=== PATIENT | female | born 1955 | race Caucasian/White ===

== ENCOUNTER 2024-02-21 09:59 | Observation (INO) ==
--- NOTE | 2024-02-21 10:10 | Emergency Department Note ---
Impression & Plan Abdominal pain, Leukocytosis, Elevated troponin, UTI (urinary tract infection) ED Provider Note NAME: DEANGELO STRANGE AGE: 68 SEX: F : 1955 ARRIVES VIA: Ambulance INFORMANT: Patient ED PROVIDER(S): Terry Marquez DO CHIEF COMPLAINT: abdominal pain HPI: Patient is a 68-year-old female who presents to the ER for abdominal pain which started around 7 AM this morning. Got significant worse after drinking water. Is in the left lower quadrant. Associate with nausea and vomiting. She was having diarrhea yesterday which continued into today. Denies any headache or change in vision. No chest pain or shortness of breath. She notes that she almost passed out yesterday and believes it was from being dehydrated. No chest pain or shortness of breath. No dysuria, urgency, or frequency. No other exacerbating or remitting factors. ADDITIONAL HISTORY OBTAINED: Per HPI Chronic Medical/Social Conditions Affecting Care: Per HPI PAST MEDICAL HISTORY:See Below PAST SURGICAL HISTORY:See Below FAMILY HISTORY:See Below SOCIAL HISTORY:See Below HOME MEDICATIONS:See Below ALLERGIES:See Below VITALS:See Below PHYSICAL EXAMINATION: GENERAL: Sitting up in bed, alert, cachectic, disheveled, holding her left lower, moderate distress EYE EXAM: normal conjunctiva. OROPHARYNX: no exudate, no erythema, lips, buccal mucosa, and tongue normal and mucous membranes are moist LUNGS: Clear to auscultation. Normal chest wall mechanics HEART: no murmurs, S1 normal and S2 normal ABDOMEN: abdomen soft, tender palpation left lower quadrant, normo-active bowel sounds, no masses, no rebound or guarding. BACK: Back is symmetrical on inspection and there is no deformity, no midline tenderness, no CVA tenderness. SKIN: no rashes and no bruising UPPER EXTREMITIES: upper extremities are grossly normal. LOWER EXTREMITIES: No pitting edema. NEURO EXAM: Normal sensorium, cranial nerves II-XII grossly intact, normal speech, no gross weakness of arms, no gross weakness of legs. MEDICAL DECISION MAKING: Patient is a 68-year-old female who presents ER for above-stated complaint. IV was established blood work was obtained. Labs show leukocytosis of 20,000. No significant anemia. BMP was fairly unremarkable. LFTs bilirubin was unremarkable. Troponin was elevated at 700. Lipase was normal. UA is consistent with UTI. She has reproducible pain and left lower quad. She was given multiple doses of morphine. CT abdomen pelvis showed multiple chronic findings in combination with Mildly distended common bile duct and main pancreatic duct with mild intrahepatic bile duct dilatation. No obstructing lesions or stones identified. Recommend correlation with LFTs to exclude an occult obstructing process near the ampulla. Discussed this with gastroenterology and they agreed with admission as opposed to transfer at this time as there is no transaminitis and bilirubin was unremarkable. Patient was given IV fluids. Patient was updated bedside. She was having improvement in her pain which also led to improvement of blood pressures. Blood pressures initially were 230s and trended down to low 180s with IV pain medications. I did favor that this was driven secondary to pain in the left lower abdomen. Discussed the case with the hospitalist for further evaluation management treatment. Again patient adamantly denies any chest pain or shortness of breath Consults/Care Managements Discussions: Per [facility] Triage Nursing notes reviewed. Limited review of prior medical records performed Vital Signs: reviewed and remarkable for no significant abnormalities Differential diagnosis: Differential diagnoses includes but is not limited to gastritis, peptic ulcer disease, GERD, gallbladder disease, pancreatitis, small bowel obstruction, appendicitis, diverticulitis, hernia, urinary tract infection, torsion, perforation, trauma, infectious. ER treatment provided: See below Diagnostics interpreted by me include EKG and cardiac monitoring as listed below: -Cardiac Monitoring: An order was placed for continuous cardiac monitoring. The monitor shows a rate of 80 with sinus rhythm. -ECG: Sinus rhythm rate 77 Normal axis No PVCs T wave inversions in the septal and anterior leads QTc 547 -Laboratory studies:Interpreted by me as stated above in MDM and shown below. Imaging studies: Xrays: As interpreted by me:none CTs show: CT abdomen pelvis per my preliminary interpretation showed inflammation of the stomach CT abdomen pelvis per radiology as described above Procedures:none Critical Care: None Past Med/Surg History Problem List (Updated 02/21/24 @ 15:51 by Terry Marquez DO) UTI (urinary tract infection) (Acute) Elevated troponin (Acute) Leukocytosis (Acute) Abdominal pain (Acute) Social History Smoking Status: Current every day smoker Tobacco Type: Cigarettes Feels Safe at Home: Yes Allergies Allergies Allergy/AdvReac Type Severity Reaction Status Date / Time No Known Allergies Allergy Unverified 03/15/22 13:30 Home Meds Previous Rx's Medication Instructions Recorded lisinopril 5 mg tablet 5 mg PO DAILY #30 tabs 03/15/22 Results & Data (ED) Vital Signs Vital Signs - 24 hr 02/21/24 10:00 02/21/24 10:09 02/21/24 10:09 Temperature 36.7 C Temperature Source Oral Pulse Rate 79 71 Pulse Rate [Finger] Pulse Rate from SpO2 Sensor Respiratory Rate 21 17 Respiratory Effort / Characteristics Spontaneous Short of Breath Respiratory Depth Normal Respiratory Pattern Tachypnea Blood Pressure 230/89 H Blood Pressure [Right Arm] Blood Pressure Mean 136 Blood Pressure Mean [Right Arm] Blood Pressure Position Semi-fowlers Blood Pressure Position [Right Arm] Pulse Oximetry 96 98 97 Oxygen Delivery Method Room Air Room Air Room Air Sepsis Recent Fever Within 48 Hours No Sepsis New/Unexplained Change in Mental Status No Sepsis Action Taken by Nursing No Action Required 02/21/24 10:17 02/21/24 11:26 02/21/24 12:00 Temperature Temperature Source Pulse Rate 71 89 Pulse Rate [Finger] Pulse Rate from SpO2 Sensor 85 Respiratory Rate 21 31 H Respiratory Effort / Characteristics Non-Labored Spontaneous Respiratory Depth Normal Respiratory Pattern Regular Blood Pressure 187/115 H Blood Pressure [Right Arm] 221/95 H Blood Pressure Mean 139 Blood Pressure Mean [Right Arm] 137 Blood Pressure Position Blood Pressure Position [Right Arm] Semi-fowlers Pulse Oximetry 96 Oxygen Delivery Method Sepsis Recent Fever Within 48 Hours Sepsis New/Unexplained Change in Mental Status Sepsis Action Taken by Nursing 02/21/24 12:15 Temperature Temperature Source Pulse Rate Pulse Rate [Finger] 75 Pulse Rate from SpO2 Sensor Respiratory Rate 15 Respiratory Effort / Characteristics Non-Labored Spontaneous Respiratory Depth Normal Respiratory Pattern Regular Blood Pressure Blood Pressure [Right Arm] 187/115 H Blood Pressure Mean Blood Pressure Mean [Right Arm] 139 Blood Pressure Position Blood Pressure Position [Right Arm] Semi-fowlers Pulse Oximetry 91 Oxygen Delivery Method Room Air Sepsis Recent Fever Within 48 Hours Sepsis New/Unexplained Change in Mental Status Sepsis Action Taken by Nursing Laboratory Data 02/21/24 10:39 02/21/24 10:39 Lab Results 02/21/24 02/21/24 02/21/24 Range/Units 10:39 10:57 11:20 WBC 20.96 H (4.8-10.8) K/ul RBC 4.76 (4.20-5.40) M/uL Hgb 14.0 (12.0-16.0) g/dl POC Hgb 13.6 (12.0-16.0) g/dl Hct 41.5 (37.0-47.0) % POC Hct 40 (37-47) % MCV 87.2 (80.0-100.0) fL MCH 29.4 (25.0-34.0) pg MCHC 33.7 (32.0-36.0) g/dL RDW Std Deviation 39.7 (36.4-46.3) fL RDW Coeff of Tracey 12.4 (11.5-14.5) % Plt Count 572 H (130-400) K/uL MPV 9.0 L (9.4-12.4) fL Immature Gran % (Auto) 0.5 % Neut % (Auto) 90.7 % Lymph % (Auto) 4.2 % [place] % (Auto) 4.3 % Eos % (Auto) 0.0 % Baso % (Auto) 0.3 % Neut # (Auto) 19.01 H (1.40-6.50) K/uL Lymph # (Auto) 0.87 L (1.20-3.40) K/uL [place] # (Auto) 0.91 H (0.11-0.59) K/uL Eos # (Auto) 0.00 (0.00-0.50) K/uL Baso # (Auto) 0.06 (0.00-0.20) K/uL Immature Gran # (Auto) 0.11 (0.01-0.20) K/uL RBC Morphology Unremarkable POC Sodium 138 (135-144) mmol/L Sodium 137 (136-145) mmol/L POC Potassium 3.5 (3.3-5.0) mmol/L Potassium 3.7 (3.5-5.1) mmol/L POC Chloride 100 L (101-112) mmol/L Chloride 98 (98-107) mmol/L Carbon Dioxide 27 (21-32) mmol/L POC Total CO2 28 (24-31) mmol/L Anion Gap 12 H (3-11) POC Anion Gap 15.0 L (16-25) mmol/L POC BUN 16 (7-18) mg/dl BUN 16 (6-23) mg/dl Creatinine 0.82 (0.6-1.2) mg/dl POC Creatinine 0.8 (0.6-1.3) mg/dl Est Cr Clr Drug Dosing 43.6 ml/min Est GFR ( Amer) 86.4 ml/min Est GFR (Non-Af Amer) 74.6 ml/min BUN/Creatinine Ratio 19.5 (10-20) Glucose 131 H (70-99(Fasting)) mg/dl POC Glucose (other) 131 H (70-99) mg/dl Lactate (0.4-2.0) mmol/L Calcium 9.5 (8.6-10.3) mg/dl POC Ioniz Calcium Nestor 1.08 L (1.12-1.32) mmol/l Total Bilirubin 0.5 (0.2-1.0) mg/dl AST 19 (13-39) U/L ALT 11 (7-52) U/L Alkaline Phosphatase 94 (34-104) U/L Troponin I High Sens 781.7 H* (0-14) pg/ml Total Protein 8.8 H (6.0-8.3) gm/dl Albumin 4.3 (3.4-5.0) gm/dl Globulin 4.5 H (2.5-4.0) gm/dl Albumin/Globulin Ratio 1.0 (0.9-2) Lipase 15 (11-82) U/L Urine Color Yellow Urine Appearance Cloudy A (Clear) Urine pH 6.5 (4.5-7.5) Ur Specific Castella 1.018 (1.000-1.030) Urine Protein 2+ H (Negative) Urine Glucose (UA) Negative (Negative) Urine Ketones 2+ H (Negative) Urine Blood Trace H (Negative) Urine Nitrite Negative (Negative) Urine Bilirubin Negative (Negative) Urine Urobilinogen Negative (Negative) Ur Leukocyte Esterase 3+ H (Negative) Urine WBC (Auto) 21-50 H (0-5) /hpf Urine RBC (Auto) 0-2 (0-2) /hpf U Hyaline Cast (Auto) 3-5 H (0-2) /lpf U Epithel Cells (Auto) 3-5 H (0-2) /hpf Urine Bacteria (Auto) 2+ H (None Seen) 02/21/24 Range/Units 12:20 WBC (4.8-10.8) K/ul RBC (4.20-5.40) M/uL Hgb (12.0-16.0) g/dl POC Hgb (12.0-16.0) g/dl Hct (37.0-47.0) % POC Hct (37-47) % MCV (80.0-100.0) fL MCH (25.0-34.0) pg MCHC (32.0-36.0) g/dL RDW Std Deviation (36.4-46.3) fL RDW Coeff of Tracey (11.5-14.5) % Plt Count (130-400) K/uL MPV (9.4-12.4) fL Immature Gran % (Auto) % Neut % (Auto) % Lymph % (Auto) % [place] % (Auto) % Eos % (Auto) % Baso % (Auto) % Neut # (Auto) (1.40-6.50) K/uL Lymph # (Auto) (1.20-3.40) K/uL [place] # (Auto) (0.11-0.59) K/uL Eos # (Auto) (0.00-0.50) K/uL Baso # (Auto) (0.00-0.20) K/uL Immature Gran # (Auto) (0.01-0.20) K/uL RBC Morphology POC Sodium (135-144) mmol/L Sodium (136-145) mmol/L POC Potassium (3.3-5.0) mmol/L Potassium (3.5-5.1) mmol/L POC Chloride (101-112) mmol/L Chloride (98-107) mmol/L Carbon Dioxide (21-32) mmol/L POC Total CO2 (24-31) mmol/L Anion Gap (3-11) POC Anion Gap (16-25) mmol/L POC BUN (7-18) mg/dl BUN (6-23) mg/dl Creatinine (0.6-1.2) mg/dl POC Creatinine (0.6-1.3) mg/dl Est Cr Clr Drug Dosing ml/min Est GFR ( Amer) ml/min Est GFR (Non-Af Amer) ml/min BUN/Creatinine Ratio (10-20) Glucose (70-99(Fasting)) mg/dl POC Glucose (other) (70-99) mg/dl Lactate 1.9 (0.4-2.0) mmol/L Calcium (8.6-10.3) mg/dl POC Ioniz Calcium Nestor (1.12-1.32) mmol/l Total Bilirubin (0.2-1.0) mg/dl AST (13-39) U/L ALT (7-52) U/L Alkaline Phosphatase (34-104) U/L Troponin I High Sens (0-14) pg/ml Total Protein (6.0-8.3) gm/dl Albumin (3.4-5.0) gm/dl Globulin (2.5-4.0) gm/dl Albumin/Globulin Ratio (0.9-2) Lipase (11-82) U/L Urine Color Urine Appearance (Clear) Urine pH (4.5-7.5) Ur Specific [place]ella (1.000-1.030) Urine Protein (Negative) Urine Glucose (UA) (Negative) Urine Ketones (Negative) Urine Blood (Negative) Urine Nitrite (Negative) Urine Bilirubin (Negative) Urine Urobilinogen (Negative) Ur Leukocyte Esterase (Negative) Urine WBC (Auto) (0-5) /hpf Urine RBC (Auto) (0-2) /hpf U Hyaline Cast (Auto) (0-2) /lpf U Epithel Cells (Auto) (0-2) /hpf Urine Bacteria (Auto) (None Seen) Administered Medications Discontinued Medications Sodium Chloride (Nss) 1,000 mls @ 999 mls/hr IV .Q1H1M ONE Stop: 02/21/24 11:08 Last Infusion: 02/21/24 11:25 Dose: Infused Documented By: Admin: 02/21/24 10:43 Dose: 999 mls/hr Documented By: MARI Piperacillin Sod/Tazobactam Sod (Zosyn) 4.5 gm in 100 mls @ 200 mls/hr IV NOW ONE Stop: 02/21/24 12:23 Last Infusion: 02/21/24 12:40 Dose: Infused Documented By: Admin: 02/21/24 12:10 Dose: 200 mls/hr Documented By: MARI Sodium Chloride (Nss) 1,000 mls @ 999 mls/hr IV .Q1H1M ONE Stop: 02/21/24 13:01 Last Infusion: 02/21/24 14:04 Dose: Infused Documented By: Admin: 02/21/24 12:14 Dose: 999 mls/hr Documented By: MARI Ioversol (Optiray 320 100ml) 94 ml IV ONCE ONE Stop: 02/21/24 11:13 Last Admin: 02/21/24 11:12 Dose: 94 ml Documented By: TERESA Morphine Sulfate (Morphine Sulfate 2 Mg/Ml Carp) 2 mg IV NOW STA Stop: 02/21/24 10:14 Last Admin: 02/21/24 10:30 Dose: 2 mg Documented By: MARI Morphine Sulfate (Morphine Sulfate 4 Mg/Ml 1 Ml Carp\Vial) 4 mg IV NOW STA Stop: 02/21/24 11:25 Last Admin: 02/21/24 11:29 Dose: 4 mg Documented By: MARI Morphine Sulfate (Morphine Sulfate 10 Mg/Ml Carp/Vial) 6 mg IV NOW STA Stop: 02/21/24 11:54 Last Admin: 02/21/24 12:06 Dose: 6 mg Documented By: MARI Morphine Sulfate (Morphine Sulfate 4 Mg/Ml 1 Ml Carp\Vial) 4 mg IV NOW STA Stop: 02/21/24 14:07 Last Admin: 02/21/24 14:12 Dose: 4 mg Documented By: MARI Ondansetron HCl (Ondansetron Inj 2 Mg/Ml 2 Ml Vial) 4 mg IV NOW STA Stop: 02/21/24 10:14 Last Admin: 02/21/24 10:30 Dose: 4 mg Documented By: MARI Imaging Data Radiologist's Impression: Abdomen/Pelvis CT 02/21/24 10:[address] WITH IV CONTRAST CT DOSE: 261.89 mGy.cm HISTORY: Generalized abdominal pain. TECHNIQUE: Multiaxial CT images of the abdomen and pelvis were performed following the use of intravenous contrast. A dose lowering technique was utilized adhering to the principles of ALARA. COMPARISON STUDY: None. FINDINGS: Emphysema is noted at the lung bases. No pneumoperitoneum. No pneumatosis. No acute fractures identified. Moderate levoscoliosis of the lumbar spine. Mild superior endplate compression deformities at L1 and L2. These are technically age indeterminate but likely chronic. No associated retropulsion. There are are a few subcentimeter hypodense lesions within the liver. These are technically too small to characterize but statistically represent cysts. These measure up to 5 mm. The common bile duct is distended up to 9 mm. The main pancreatic duct is also mildly distended measuring up to 4 mm. No obstructing stones or lesions identified. There is mild intrahepatic bile duct dilatation. The gallbladder is contracted but appears unremarkable. The pancreas enhances normally. The spleen and adrenal glands are unremarkable. There is a 12 mm cyst within the mid right kidney. Mild multifocal scarring within the right kidney. No hydronephrosis. The main portal vein is patent. Heavily calcified plaque within the normal caliber abdominal aorta. There is occlusion of the right iliac arteries which are small in caliber suggestive chronic occlusion. There is reconstitution of flow at the right common femoral artery due to a collateral from the inferior epigastric. There is also occlusion of the bilateral superficial femoral arteries which are also small caliber and therefore likely chronic. 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 No retroperitoneal or pelvic lymphadenopathy. The bladder is distended. The uterus and bilateral adnexa are unremarkable. There is an 11 mm right ovarian cyst. A few colonic diverticula. No evidence for acute diverticulitis. No bowel wall thickening or obstruction. Normal appendix. Fluid- filled loop of small bowel within the left lower quadrant is not dilated by CT criteria. Therefore, this is unlikely to represent an obstruction. Mildly distended and fluid-filled stomach. No definite transition point.. IMPRESSION: 1. No bowel wall thickening or obstruction. 2. Mildly distended and fluid-filled stomach. 3. No hydronephrosis. 4. Normal appendix. 5. Mildly distended common bile duct and main pancreatic duct with mild intrahepatic bile duct dilatation. No obstructing lesions or stones identified. Recommend correlation with LFTs to exclude an occult obstructing process near the ampulla. Follow-up nonemergent ERCP should also be considered for further evaluation. 6. Distended bladder. 7. 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 8. Mild superior endplate compression deformities at L1 and L2. This is likely chronic. 9. Additional findings as described above. ACT 112: Negative or not required by law. Electronically signed by: Kingsley Bruner M.D. 02/21/2024 11:46 AM Discharge Plan Visit Data Chief Complaint: Abdominal Pain ED Provider: Terry Marquez Discharge Problem: Abdominal pain, Leukocytosis, Elevated troponin, UTI (urinary tract infection) Patient Disposition: Admitted As Inpatient Discharge Instructions Interventions: ED Discharge Assessment Last Done: 02/21/24 14:46 Discharge Problem: Abdominal pain Qualifiers: Abdominal location: unspecified location Qualified Code(s): R10.9 - Unspecified abdominal pain Leukocytosis Qualifiers: Leukocytosis type: unspecified Qualified Code(s): D72.829 - Elevated white blood cell count, unspecified UTI (urinary tract infection) Qualifiers: Urinary tract infection type: site unspecified Hematuria presence: without hematuria Qualified Code(s): N39.0 - Urinary tract infection, site not specified
[2024-02-21] MEDS: MoRPHine SULFATE 2 MG/ML CARP IV STA (10:30)
[2024-02-21] MEDS: ONDANSETRON INJ 2 MG/ML 2 ML VIAL IV STA (10:30)
[2024-02-21] MEDS: SODIUM CHLORIDE 0.9% 1,000 ML IV ONE ×2 (10:43→12:14)
[2024-02-21 11:06] LABS: Hematocrit (blood only) 41.5 % (37.0-47.0); Mean Corpuscular Hemoglobin 29.4 pg (25.0-34.0); Mean Corpuscular Hgb Conc 33.7 g/dL (32.0-36.0); Mean Corpuscular Volume 87.2 fL (80.0-100.0); Platelet Count 572 K/uL (130-400); RDW Coefficient of Variation 12.4 % (11.5-14.5); RDW Standard Deviation 39.7 fL (36.4-46.3); Red Blood Count 4.76 M/uL (4.20-5.40); White Blood Count 20.96 K/ul (4.8-10.8)
[2024-02-21 11:11] LABS: iSTAT Creatinine 0.8 mg/dl (0.6-1.3); iSTAT Hemoglobin 13.6 g/dl (12.0-16.0); iSTAT Ionized Calcium 1.08 mmol/l (1.12-1.32); iSTAT Potassium 3.5 mmol/L (3.3-5.0)
[2024-02-21] MEDS: OPTIRAY 320 100ml IV ONE (11:12)
[2024-02-21 11:23] LABS: Albumin Level 4.3 gm/dl (3.4-5.0); BUN Creatinine Ratio 19.5 (10-20); Bilirubin,Total 0.5 mg/dl (0.2-1.0); Calcium 9.5 mg/dl (8.6-10.3); Creatinine Clr Calc Pharmacy 43.6 ml/min; Est GFR (African American) 86.4 ml/min; Est GFR (Non-African American) 74.6 ml/min; Globulin 4.5 gm/dl (2.5-4.0); Potassium 3.7 mmol/L (3.5-5.1); Total Protein 8.8 gm/dl (6.0-8.3)
[2024-02-21] MEDS: MoRPHine SULFATE 4 MG/ML 1 ML CARP\\VIAL IV STA ×2 (11:29→14:12)
[2024-02-21 11:31] LABS: Basophils # (auto) 0.06 K/uL (0.00-0.20); Basophils % (auto) 0.3 %; Immature Granulocytes # (auto) 0.11 K/uL (0.01-0.20); Immature Granulocytes % (auto) 0.5 %; Lymphocytes # (auto) 0.87 K/uL (1.20-3.40); Lymphocytes % (auto) 4.2 %; Monocytes # (auto) 0.91 K/uL (0.11-0.59); Monocytes % (auto) 4.3 %; Neutrophils # (auto) 19.01 K/uL (1.40-6.50); Neutrophils % (auto) 90.7 %; RBC Morphology Unremarkable
[2024-02-21 11:34] LABS: Appearance Urine Cloudy (Clear); Bacteria Urine Automated 2+ (None Seen); Bilirubin Urine Negative (Negative); Blood Urine Trace (Negative); Color Urine Yellow; Glucose Urine UA Negative (Negative); Ketones Urine 2+ (Negative); Leukocyte Esterase Urine 3+ (Negative); Nitrite Urine Negative (Negative); Protein Urine 2+ (Negative); RBC Urine Automated 0-2 /hpf (0-2); Specific Gravity Urine 1.018 (1.000-1.030); Urobilinogen Urine Negative (Negative); WBC Urine Automated 21-50 /hpf (0-5); pH Urine 6.5 (4.5-7.5)
[2024-02-21 11:36] LABS: Troponin I High Sensitivity 781.7 pg/ml (0-14)
--- NOTE | 2024-02-21 11:48 | CT Scan Report ---
ABDOMEN AND PELVIS CT WITH IV CONTRAST CT DOSE: 261.89 mGy.cm HISTORY: Generalized abdominal pain. TECHNIQUE: Multiaxial CT images of the abdomen and pelvis were performed following the use of intrave nous contrast. A dose lowering technique was utilized adhering to the principles of ALARA. COMPARISON STUDY: None. FINDINGS: Emphysema is noted at the lung bases. No pneumoperitoneum. No pneumatosis. No acute fractur es identified. Moderate levoscoliosis of the lumbar spine. Mild superior endplate compression deformi ties at L1 and L2. These are technically age indeterminate but likely chronic. No associated retropul nataliya. There are are a few subcentimeter hypodense lesions within the liver. These are technically too small to characterize but statistically represent cysts. These measure up to 5 mm. The common bile d uct is distended up to 9 mm. The main pancreatic duct is also mildly distended measuring up to 4 mm. No obstructing stones or lesions identified. There is mild intrahepatic bile duct dilatation. The gal lbladder is contracted but appears unremarkable. The pancreas enhances normally. The spleen and adren al glands are unremarkable. There is a 12 mm cyst within the mid right kidney. Mild multifocal scarri ng within the right kidney. No hydronephrosis. The main portal vein is patent. Heavily calcified plaq ue within the normal caliber abdominal aorta. There is occlusion of the right iliac arteries which ar e small in caliber suggestive chronic occlusion. There is reconstitution of flow at the right common femoral artery due to a collateral from the inferior epigastric. There is also occlusion of the bilat eral superficial femoral arteries which are also small caliber and therefore likely chronic. High-gra de stenosis noted at the proximal superior mesenteric artery which is likely chronic. No retroperiton eal or pelvic lymphadenopathy. The bladder is distended. The uterus and bilateral adnexa are unremark able. There is an 11 mm right ovarian cyst. A few colonic diverticula. No evidence for acute divertic ulitis. No bowel wall thickening or obstruction. Normal appendix. Fluid-filled loop of small bowel wi thin the left lower quadrant is not dilated by CT criteria. Therefore, this is unlikely to represent an obstruction. Mildly distended and fluid-filled stomach. No definite transition point.. IMPRESSION: 1. No bowel wall thickening or obstruction. 2. Mildly distended and fluid-filled stomach. 3. No hydronephrosis. 4. Normal appendix. 5. Mildly distended common bile duct and main pancreatic duct with mild intrahepatic bile duct dilata tion. No obstructing lesions or stones identified. Recommend correlation with LFTs to exclude an occu lt obstructing process near the ampulla. Follow-up nonemergent ERCP should also be considered for fur ther evaluation. 6. Distended bladder. 7. 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 8. Mild superior endplate compression deformities at L1 and L2. This is likely chronic. 9. Additional findings as described above. ACT 112: Negative or not required by law. Electronically signed by: Kingsley Bruner M.D. 02/21/2024 11:46 AM
[2024-02-21] MEDS: MoRPHine SULFATE 10 MG/ML CARP/VIAL IV STA (12:06)
[2024-02-21] MEDS: PIPERACILLIN/TAZOBACTAM 4.5 GM/100 ML BAG IV ONE (12:10)
[2024-02-21] MEDS ORDERED: STAT IV Infusion **Titration per Protocol STA (15:51)
[2024-02-21] MEDS: LACTATED RINGER'S 1,000 ML IV SCH (16:17)
[2024-02-21] MEDS: LABETALOL HCL IV 5 MG/ML 20ML IV STA (17:23)
--- NOTE | 2024-02-21 17:27 | Surgery Consultation ---
Date of Consultation February 21, 2024 Assessment & Plan (1) Elevated troponin: Plan as per medicine (2) Abdominal pain: 68-year-old woman who is a heavy smoker who presents with left-sided abdominal pain and leukocytosis. Her symptoms also included diarrhea the day prior. CT scan shows a dilated loop of small bowel in the left lower quadrant. Her WBC count is elevated but lactate is normal. 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 However, the celiac and inferior mesenteric arteries do appear to be at least partially patent. For this reason, I am not as concerned about acute mesenteric ischemia. I would agree with hydration, bowel rest, and antibiotics. We will continue to follow. It is also possible that she has enteritis or a early bowel obstruction. Following discharge, she should be evaluated by vascular surgery given the amount of her atherosclerotic vascular disease. There are currently no findings to suggest need for urgent operative exploration. History of Present Illness Reason for Consultation: abdominal pain Requesting Physician: Terry Rush DO Attending Physician: Terry Rush DO History of Present Illness 68-year-old smoker who presents to the emergency room complaining of intense acute crampy abdominal pain which started this morning. Yesterday, she noticed diarrhea. This continued into today. She did not eat anything unusual for her yesterday. She denies any sick contacts. This morning, she drank 2 sips of bottled water and developed crampy generalized abdominal pain which was worse in the left lower quadrant. This was very intense and caused her to double over. There were no relieving factors. She currently does not have any nausea or vomiting. She did denies any bloating. Her last meal was yesterday evening and was normal. She does not note any fevers. She has never had any similar ep isodes in the past. She has not had any prior abdominal operations. Imaging in the ER revealed evidence of atherosclerotic vascular disease with occlusion of right iliac and bilateral superficial femoral arteries with reconstitution distally. She also has a chronic nearly occluded SMA. She has never met with vascular surgery in the past. She denies any history of a heart attack or stroke. She does admit to some claudication. 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 Beliefs That Will Affect Care: None Current Living Situation: Alone Other Information That Helps Us Care for You: No Feels Safe at Home: Yes Safety Concerns: Feels Safe At This Time Review of Systems Review of Systems: All systems reviewed & are unremarkable except as noted in HPI & below Respiratory: over 40 pack year tobacco use, currently 1 ppd Musculoskeletal: claudication Physical Exam Constitutional: WD/WN, vitals as above Eyes: PERRL, conjunctivae normal, anicteric sclerae Neck: trachea midline, no thyromegaly Respiratory: normal respiratory effort, lungs clear to auscultation Cardiovascular: RRR, no murmur, no edema Gastrointestinal (Abdomen): Inspection/Auscultation: abdomen normal to i nspection and normal bowel sounds; abdomen not distended Percussion/Palpation: + abdomen tender (mild in left lower quadrant) and abdomen soft; no guarding Neurologic: awake; no focal motor deficits Psychiatric: A+Ox3, euthymic affect Results & Data Vital Signs (Past 12 Hours) Vital Signs Temp Pulse Pulse Resp BP BP Pulse Ox 02/21/24 17:23 100 H 162/85 H 02/21/24 15:41 36.4 C L 84 18 200/95 H 95 02/21/24 14:30 77 22 219/126 H 95 02/21/24 14:17 71 20 215/107 H 96 02/21/24 12:15 75 15 187/115 H 91 02/21/24 12:00 89 31 H 187/115 H 96 02/21/24 11:26 21 221/95 H 02/21/24 10:17 71 02/21/24 10:09 71 17 97 02/21/24 10:09 36.7 C 79 21 230/89 H 98 02/21/24 10:00 96 O2 Del Method 02/21/24 17:23 02/21/24 15:41 Room Air 02/21/24 14:30 Room Air 02/21/24 14:17 Room Air 02/21/24 12:15 Room Air 02/21/24 12:00 02/21/24 11:26 02/21/24 10:17 02/21/24 10:09 Room Air 02/21/24 10:09 Room Air 02/21/24 10:00 Room Air Laboratory Results 02/21/24 02/21/24 02/21/24 Range/Units 15:43 15:42 12:20 WBC (4.8-10.8) K/ul RBC (4.20-5.40) M/uL Hgb (12.0-16.0) g/dl POC Hgb (12.0-16.0) g/dl Hct (37.0-47.0) % POC Hct (37-47) % MCV (80.0-100.0) fL MCH (25.0-34.0) pg MCHC (32.0-36.0) g/dL RDW Std Deviation (36.4-46.3) fL RDW Coeff of Tracey (11.5-14.5) % Plt Count (130-400) K/uL MPV (9.4-12.4) fL Immature Gran % (Auto) % Neut % (Auto) % Lymph % (Auto) % [place] % (Auto) % Eos % (Auto) % Baso % (Auto) % Neut # (Auto) (1.40-6.50) K/uL Lymph # (Auto) (1.20-3.40) K/uL [place] # (Auto) (0.11-0.59) K/uL Eos # (Auto) (0.00-0.50) K/uL Baso # (Auto) (0.00-0.20) K/uL Immature Gran # (Auto) (0.01-0.20) K/uL RBC Morphology POC Sodium (135-144) mmol/L Sodium (136-145) mmol/L POC Potassium (3.3-5.0) mmol/L Potassium (3.5-5.1) mmol/L POC Chloride (101-112) mmol/L Chloride (98-107) mmol/L Carbon Dioxide (21-32) mmol/L POC Total CO2 (24-31) mmol/L Anion Gap (3-11) POC Anion Gap (16-25) mmol/L POC BUN (7-18) mg/dl BUN (6-23) mg/dl Creatinine (0.6-1.2) mg/dl POC Creatinine (0.6-1.3) mg/dl Est Cr Clr Drug Dosing ml/min Est GFR ( Amer) ml/min Est GFR (Non-Af Amer) ml/min BUN/Creatinine Ratio (10-20) Glucose (70-99(Fasting)) mg/dl POC Glucose (other) (70-99) mg/dl Lactate 2.0 1.9 (0.4-2.0) mmol/L Calcium (8.6-10.3) mg/dl POC Ioniz Calcium Nestor (1.12-1.32) mmol/l Total Bilirubin (0.2-1.0) mg/dl AST (13-39) U/L ALT (7-52) U/L Alkaline Phosphatase (34-104) U/L Troponin I High Sens 624.6 H* D (0-14) pg/ml Total Protein (6.0-8.3) gm/dl Albumin (3.4-5.0) gm/dl Globulin (2.5-4.0) gm/dl Albumin/Globulin Ratio (0.9-2) Lipase (11-82) U/L Urine Color Urine Appearance (Clear) Urine pH (4.5-7.5) Ur Specific [place] (1.000-1.030) Urine Protein (Negative) Urine Glucose (UA) (Negative) Urine Ketones (Negative) Urine Blood (Negative) Urine Nitrite (Negative) Urine Bilirubin (Negative) Urine Urobilinogen (Negative) Ur Leukocyte Esterase (Negative) Urine WBC (Auto) (0-5) /hpf Urine RBC (Auto) (0-2) /hpf U Hyaline Cast (Auto) (0-2) /lpf U Epithel Cells (Auto) (0-2) /hpf Urine Bacteria (Auto) (None Seen) 02/21/24 02/21/24 02/21/24 Range/Units 11:20 10:57 10:39 WBC 20.96 H (4.8-10.8) K/ul RBC 4.76 (4.20-5.40) M/uL Hgb 14.0 (12.0-16.0) g/dl POC Hgb 13.6 (12.0-16.0) g/dl Hct 41.5 (37.0-47.0) % POC Hct 40 (37-47) % MCV 87.2 (80.0-100.0) fL MCH 29.4 (25.0-34.0) pg MCHC 33.7 (32.0-36.0) g/dL RDW Std Deviation 39.7 (36.4-46.3) fL RDW Coeff of Tracey 12.4 (11.5-14.5) % Plt Count 572 H (130-400) K/uL MPV 9.0 L (9.4-12.4) fL Immature Gran % (Auto) 0.5 % Neut % (Auto) 90.7 % Lymph % (Auto) 4.2 % [place] % (Auto) 4.3 % Eos % (Auto) 0.0 % Baso % (Auto) 0.3 % Neut # (Auto) 19.01 H (1.40-6.50) K/uL Lymph # (Auto) 0.87 L (1.20-3.40) K/uL [place] # (Auto) 0.91 H (0.11-0.59) K/uL Eos # (Auto) 0.00 (0.00-0.50) K/uL Baso # (Auto) 0.06 (0.00-0.20) K/uL Immature Gran # (Auto) 0.11 (0.01-0.20) K/uL RBC Morphology Unremarkable POC Sodium 138 (135-144) mmol/L Sodium 137 (136-145) mmol/L POC Potassium 3.5 (3.3-5.0) mmol/L Potassium 3.7 (3.5-5.1) mmol/L POC Chloride 100 L (101-112) mmol/L Chloride 98 (98-107) mmol/L Carbon Dioxide 27 (21-32) mmol/L POC Total CO2 28 (24-31) mmol/L Anion Gap 12 H (3-11) POC Anion Gap 15.0 L (16-25) mmol/L POC BUN 16 (7-18) mg/dl BUN 16 (6-23) mg/dl Creatinine 0.82 (0.6-1.2) mg/dl POC Creatinine 0.8 (0.6-1.3) mg/dl Est Cr Clr Drug Dosing 43.6 ml/min Est GFR ( Amer) 86.4 ml/min Est GFR (Non-Af Amer) 74.6 ml/min BUN/Creatinine Ratio 19.5 (10-20) Glucose 131 H (70-99(Fasting)) mg/dl POC Glucose (other) 131 H (70-99) mg/dl Lactate (0.4-2.0) mmol/L Calcium 9.5 (8.6-10.3) mg/dl POC Ioniz Calcium Nestor 1.08 L (1.12-1.32) mmol/l Total Bilirubin 0.5 (0.2-1.0) mg/dl AST 19 (13-39) U/L ALT 11 (7-52) U/L Alkaline Phosphatase 94 (34-104) U/L Troponin I High Sens 781.7 H* (0-14) pg/ml Total Protein 8.8 H (6.0-8.3) gm/dl Albumin 4.3 (3.4-5.0) gm/dl Globulin 4.5 H (2.5-4.0) gm/dl Albumin/Globulin Ratio 1.0 (0.9-2) Lipase 15 (11-82) U/L Urine Color Yellow Urine Appearance Cloudy A (Clear) Urine pH 6.5 (4.5-7.5) Ur Specific [place] 1.018 (1.000-1.030) Urine Protein 2+ H (Negative) Urine Glucose (UA) Negative (Negative) Urine Ketones 2+ H (Negative) Urine Blood Trace H (Negative) Urine Nitrite Negative (Negative) Urine Bilirubin Negative (Negative) Urine Urobilinogen Negative (Negative) Ur Leukocyte Esterase 3+ H (Negative) Urine WBC (Auto) 21-50 H (0-5) /hpf Urine RBC (Auto) 0-2 (0-2) /hpf U Hyaline Cast (Auto) 3-5 H (0-2) /lpf U Epithel Cells (Auto) 3-5 H (0-2) /hpf Urine Bacteria (Auto) 2+ H (None Seen) Diagnostic Findings [facility], [place] [phone] CT Scan Report Patient: DEANGELO STRANGE Admit Date: 02/21/24 MR#: [id number] Address[address]: [address] [facility] Acct ID:[id number] Address2: [address] Date: 1955 [facility] Zip: [place] [address] Age: 68 Location: ED Sex: F Room/Bed: Att Phy: Diagnosis: ABDOMINAL PAIN Melissa Phy: PCP,NO Service Date: 02/21/24 [facility] Phy: Interpreting Phy: Kingsley Bruner MDAdmit Phy: Ordering Phy: Terry Marquez, cc: ~ ABDOMEN AND PELVIS CT WITH IV CONTRAST CT DOSE: 261.89 mGy.cm HISTORY: Generalized abdominal pain. TECHNIQUE: Multiaxial CT images of the abdomen and pelvis were performed following the use of intravenous contrast. A dose lowering technique was utilized adhering to the principles of ALARA. COMPARISON STUDY: None. FINDINGS: Emphysema is noted at the lung bases. No pneumoperitoneum. No pneumat osis. No acute fractures identified. Moderate levoscoliosis of the lumbar spine. Mild superior endplate compression deformities at L1 and L2. These are technically age indeterminate but likely chronic. No associated retropulsion. There are are a few subcentimeter hypodense lesions within the liver. These are technically too small to characterize but statistically represent cysts. These measure up to 5 mm. The common bile duct is distended up to 9 mm. The main pancreatic duct is also mildly distended measuring up to 4 mm. No obstructing stones or lesions identified. There is mild intrahepatic bile duct dilatation. The gallbladder is contracted but appears unremarkable. The pancreas enhances normally. The spleen and adrenal glands are unremarkable. There is a 12 mm cyst within the mid right kidney. Mild multifocal scarring within the right kidney. No hydronephrosis. The main portal vein is patent. Heavily calcified plaque within the normal caliber abdominal aorta. There is occlusion of the right iliac arteries which are small in caliber suggestive chronic occlusion. There is reconstitution of flow at the right common femoral artery due to a collateral from the inferior epigastric. There is also occlusion of the bilateral superficial femoral arteries which are also small caliber and therefore likely chronic. 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 No retroperitoneal or pelvic lymphadenopathy. The bladder is distended. The uterus and bilateral adnexa are unremarkable. There is an 11 mm right ovarian cyst. A few colonic diverticula. No evidence for acute diverticulitis. No bowel wall thickening or obstruction. Normal appendix. Fluid- filled loop of small bowel within the left lower quadrant is not dilated by CT criteria. Therefore, this is unlikely to represent an obstruction. Mildly distended and fluid-filled stomach. No definite transition point.. IMPRESSION: 1. No bowel wall thickening or obstruction. 2. Mildly distended and fluid-filled stomach. 3. No hydronephrosis. 4. Normal appendix. 5. Mildly distended common bile duct and main pancreatic duct with mild intrahepatic bile duct dilatation. No obstructing lesions or stones identified. Recommend correlation with LFTs to exclude an occult obstructing process near the ampulla. Follow-up nonemergent ERCP should also be considered for further evaluation. 6. Distended bladder. 7. 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 8. Mild superior endplate compression deformities at L1 and L2. This is likely chronic. 9. Additional findings as described above. ACT 112: Negative or not required by law. (2) Abdominal pain Abdominal location: unspecified location Qualified Code(s): R10.9 - Unspecified abdominal pain
--- NOTE | 2024-02-21 17:33 | History & Physical Report ---
Date of Service February 21, 2024 Assessment & Plan (1) Abdominal pain: Plan: Differential for this is fairly broad. It could be as simple as a viral or foodborne enteritis that has since started to resolve, but given that she was still here in the ER with 10/10 abdominal pain and a very benign exam at the time that her pain was still intense, and given her diffuse atherosclerosis, ischemic colitis/mesenteric ischemia is the diagnosis of exclusion. Cover for gram-negatives and anaerobes with ceftriaxone and metronidazole, serial exams, while there is definitely no appearance of a looming surgical catastrophe, given that the differential is a little bit difficult to sort out currently, would appreciate their opinion on ischemic colitis/mesenteric ischemia as well. Highly doubt any urinary tract infection plays a role, especially given that she has no urinary symptoms. If it is mesenteric ischemia/ischemic colitis, it could also be a bit of an endpoint of what seems like it could be a hypertensive urgency. (2) Hypertensive emergency: Plan: She does not really know what her baseline blood pressures run, but she notes not as high as she has been now. What is very difficult is sorting out cause/effect with her pain and her high blood pressure. Given her diffuse atherosclerotic disease, it is certainly possible that she is having an hypertensive emergency with mesenteric ischemia/ischemic colitis being a degree of endorgan damage, and her elevated troponin being severe demand ischemia from afterload. At the same time, given that she was in 10/10 pain, the elevations of her blood pressure might simply be reactive to the pain/stress/discomfort. At this point, the main thing that we will distinguish 1 from the other is time/serial exams/following her blood pressure/following her symptomsin the meantime will manage as though it truly is hypertensive mediated given that to not do so could be harmful to her. Will utilize nicardipine drip so that we can titrate to systolic of 1 80-200 for now, and progressively lower her blood pressure later. (3) Elevated troponin: Plan: No symptoms, which is reassuring, but given her diffuse intra-abdominal vascular disease, she almost undoubtedly has severe coronary disease as well. Her troponin is rather significantly elevated for purely demand ischemia, and is almost into the area where demand ischemia would cross over to more of a type II MIall likely from afterload/physiologic stress of her blood pressure. She does have newly flipped T waves. Will check an echocardiogram, trend her troponins, and follow her clinically. At some point in the near future, I would expect she will need a cath, but given that she is asymptomatic this does not appear to be an acute urgency/acute MT as much is just severe demand ischemia from marked elevations of blood pressure/hypertensive emergency/markedly elevated afterload. Initiate med management for presumed coronary disease. Recommended smoke cessation. (4) DVT prophylaxis: Plan: Heparin subcu Plan admit to telemetry, serial exams/time/serial labs/surgical input to distinguish the etiology of her abdominal pain; similarly serial exams/time/trending blood pressure/managing blood pressure to help determine if it was causative of her symptoms or reactive to them. Admission and Anticipated Discharge Date Admission Date: February 21, 2024 History of Present Illness Chief Complaint: Abdominal pain Primary Care Provider: Ayden Mcknight PA-C very pleasant 68-year-old female who has about a day and a half of abdominal pain. She notes that she started with diffuse crampy abdominal pain yesterday. It seems like it was fairly intense. She described feeling feverish having some degree of shaking chills, breaking out in sweats. She also had diarrhea 3 timesit seems like the pain went away and then she had the diarrhea, but the exact timeline is not entirely clear. She does not know if the diarrhea was bloody because she did not look. She has had a little bit more diarrhea today. No upper abdominal/epigastric pain, no nausea or vomiting. She felt feverish (again did not take her temperature) some chills and some sweats earlier today as well. she denies any urinary symptomsno dysuria hematuria frequency or urgency. She does not have any chest pain/chest pressure/shortness of breath. Review of systems otherwise negative except for as above Allergies Allergy/AdvReac Type Severity Reaction Status Date / Time No Known Allergies Allergy Unverified 03/15/22 13:30 Home Medications Medication Instructions Recorded Confirmed Type lisinopril 5 mg tablet 5 mg PO DAILY #30 tabs 03/15/22 Rx Past Med/Surg History Problem List (Updated 02/21/24 @ 17:26 by Terry Rush DO) DVT prophylaxis Hypertensive emergency UTI (urinary tract infection) (Acute) Elevated troponin (Acute) Leukocytosis (Acute) Abdominal pain (Acute) Social History Smoking Status: Current every day smoker Tobacco Type: Cigarettes Second Hand Exposure: No; Tobacco Cessation Education Requested by Patient: No Hx Alcohol Use: Yes Hx Substance Use: No Preferred Language: Amharic Inkjet Operator Required: No Beliefs That Will Affect Care: None Current Living Situation: Alone Other Information That Helps Us Care for You: No Feels Safe at Home: Yes Safety Concerns: Feels Safe At This Time Review of Systems Review of Systems: All systems reviewed & are unremarkable except as noted in HPI & below Physical Exam Physical Exam: General she is awake and alert pleasant fatigued no distress. HEENT normocephalic atraumatic mucous membranes moist. Breathing unlabored no accessory muscle use good effort. Skin without rashes pallor or icterus. Abdomen is soft nondistended nontender no masses organomegaly no guarding rebound or rigidity. Musculoskeletal shows a diffuse fairly severe scoliosis, along with paraspinal tenderness. No true CVA tenderness. Extremities are without cyanosis clubbing or edema, skin is warm and dry. Labs and diagnostics notedmost notable are white count of 20, CT scan showing some dilated loops of bowel and diffuse atherosclerosis, troponin of 780, EKG with inverted T waves anteriorly that are new compared to previous. Results & Data Results & Data Vital Signs (Past 12 Hours) Vital Signs Temp Pulse Pulse Resp BP BP Pulse Ox 02/21/24 15:41 97.5 F L 84 18 200/95 H 95 02/21/24 14:30 77 22 219/126 H 95 02/21/24 14:17 71 20 215/107 H 96 02/21/24 12:15 75 15 187/115 H 91 02/21/24 12:00 89 31 H 187/115 H 96 02/21/24 11:26 21 221/95 H 02/21/24 10:17 71 02/21/24 10:09 71 17 97 02/21/24 10:09 98.1 F 79 21 230/89 H 98 02/21/24 10:00 96 O2 Del Method 02/21/24 15:41 Room Air 02/21/24 14:30 Room Air 02/21/24 14:17 Room Air 02/21/24 12:15 Room Air 02/21/24 12:00 02/21/24 11:26 02/21/24 10:17 02/21/24 10:09 Room Air 02/21/24 10:09 Room Air 02/21/24 10:00 Room Air PG Care Time/CCT Total # of Minutes Spent Total Time Spent with Patient: Total time spent is greater than 50% in coordination of care (as documented) at patient's floor/unit and/or counseling patient: Coding Level of Care Code 15064 INT INP/OBS CARE 3/75MIN Diagnoses Abdominal pain R10.9 Abdominal location: unspecified location Hypertensive emergency I16.1 Elevated troponin R79.89 DVT prophylaxis Z29.9 (1) Abdominal pain Abdominal location: unspecified location Qualified Code(s): R10.9 - Unspecified abdominal pain
[2024-02-21] MEDS: HYDROmorphone INJ 0.5 MG/0.5 ML SYR IV PRN (18:10)
[2024-02-21] MEDS: metroNIDAZOLE 500 MG/100 ML BAG IV SCH (18:10)
[2024-02-21] MEDS: cefTRIAXone SODIUM 2,000 MG/50 ML BAG IV SCH (18:30)
[2024-02-21] MEDS: ATORVASTATIN 40 MG TAB PO SCH (19:23)
[2024-02-21] MEDS: ASPIRIN 81 MG ECTAB PO SCH (19:23)
[2024-02-21] MEDS: niCARdipine 25 MG in SODIUM CHLORIDE 0.9% 240 ML IV SCH (21:46)
[2024-02-21 23:20] LABS: Basophils # (auto) 0.06 K/uL (0.00-0.20); Basophils % (auto) 0.3 %; Eosinophils # (auto) 0.11 K/uL (0.00-0.50); Eosinophils % (auto) 0.5 %; Hemoglobin 12.5 g/dl (12.0-16.0); Immature Granulocytes # (auto) 0.07 K/uL (0.01-0.20); Immature Granulocytes % (auto) 0.3 %; Lymphocytes # (auto) 0.73 K/uL (1.20-3.40); Lymphocytes % (auto) 3.5 %; Mean Corpuscular Hemoglobin 29.3 pg (25.0-34.0); Mean Corpuscular Hgb Conc 32.9 g/dL (32.0-36.0); Mean Platelet Volume 8.9 fL (9.4-12.4); Monocytes # (auto) 1.38 K/uL (0.11-0.59); Monocytes % (auto) 6.6 %; Neutrophils # (auto) 18.63 K/uL (1.40-6.50); Neutrophils % (auto) 88.8 %; Platelet Count 498 K/uL (130-400); RDW Coefficient of Variation 12.7 % (11.5-14.5); RDW Standard Deviation 41.1 fL (36.4-46.3); Red Blood Count 4.27 M/uL (4.20-5.40); White Blood Count 20.98 K/ul (4.8-10.8)
[2024-02-21 23:38] LABS: Albumin Globulin Ratio 0.9 (0.9-2); Albumin Level 3.6 gm/dl (3.4-5.0); BUN Creatinine Ratio 21.4 (10-20); Bilirubin,Total 0.5 mg/dl (0.2-1.0); Calcium 8.6 mg/dl (8.6-10.3); Creatinine Clr Calc Pharmacy 51.2 ml/min; Est GFR (African American) 104.6 ml/min; Est GFR (Non-African American) 90.3 ml/min; Globulin 3.8 gm/dl (2.5-4.0); Potassium 3.6 mmol/L (3.5-5.1); Total Protein 7.4 gm/dl (6.0-8.3)
[2024-02-21 23:52] LABS: Thyroid Stimulating Hormone 0.562 uIu/ml (0.300-4.500)
[2024-02-22] MEDS: LABETALOL HCL IV 5 MG/ML 20ML IV STA (00:05)
[2024-02-22] MEDS: HYDROmorphone INJ 0.5 MG/0.5 ML SYR IV PRN (02:08)
--- NOTE | 2024-02-22 05:32 | Electrocardiogram Report ---
Test Reason : Blood Pressure : / mmHG Vent. Rate : 077 BPM Atrial Rate : 077 BPM P-R Int : 138 ms QRS Dur : 076 ms QT Int : 484 ms P-R-T Axes : 082 071 085 degrees QTc Int : 547 ms Sinus rhythm with marked sinus arrhythmia Possible Left atrial enlargement Anterior infarct , age undetermined T wave abnormality, consider anterior ischemia Prolonged QT Abnormal ECG When compared with ECG of 15-MAR-2022 11:56, Anterior infarct is now Present T wave inversion now evident in Anterior leads QT has lengthened Confirmed by Isaac Garcia ([id number]) on 02/22/2024 5:32:25 AM Referred By: Confirmed By:Isaac Garcia
--- NOTE | 2024-02-22 07:20 | Hospitalist Progress Note ---
Date of Service February 22, 2024 Assessment & Plan (1) Abdominal pain: Plan: 68 F presenting with diffuse afebrile abdominal pain found to have significant leukocytosis and elevated troponin on evaluation. Now admitted for further diagnostic assessment, pain management. Abdominal Pain/Leukocytosis -Etiology unclear. WBC 20.96, plt-572, 2+ proteinuria, 2+ ketonuria, 3+ leuk esterase on urinalysis. LFTs normal. Lactate normal. 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 General surgery consulted as precaution. -Differential also included enterocolitis, gastritis, pancreatitis, cholecystitis, though less likely in the absence of fever. -Admitted to [facility] * Started on IV ceftriaxone 2 g daily, IV Flagyl 500 mg every 8 hours * Pain control: IV Dilaudid 0.5 mg, 0.25 mg as needed every 3 hours * Trend CBC Elevated Troponin -781.7 on admission. Repeat 624.6. Patient asymptomatic. -Concern for demand ischemia given evidence of severe intra-abdominal vascular disease. Patient also a smoker (half a pack daily). -Lipid profile normal, HgbA1c 5.9% * Atorvastatin 80 mg daily * Aspirin 81 mg daily Hypertensive Emergency -Multiple SBP readings >210 over DBP readings >110 on admission. -Started on nicardipine drip to bring SBP <180. -Patient received IV labetalol 10 mg x 2 doses overnight. -Switch to p.o. antihypertensives delayed due to patient's dysphagia. Now cleared for p.o. administration following evaluation by speech therapy. * P.o. HCTZ/losartan 50/12.5 mg daily. Will continue at discharge. * As needed IV labetalol 10 mg (SBP >190, DBP >110). Dysphagia -Discovered postadmission, as patient unable to tolerate p.o. administration. -Speech/swallow evaluation ordered: Recommended initiation clear liquid diet. * Advance diet to soft bite sized if able to tolerate CLD * Nutrition consult placed Code: DNR/DNI Dispo: PCU FEN/GI: LR @maintenance rate. Clear liquid diet DVT Prophylaxis: Lovenox 40 mg q24h PT/OT: No Consults: General Surgery, speech Case Management: No (2) Elevated troponin: (3) Hypertensive emergency: (4) DVT prophylaxis: (5) Dysphagia: Admission and Anticipated Discharge Date Admission Date: February 21, 2024 Supervising Physician Co-Signing Physician Notes I personally examined the patient and verified all burgess points of history and exam, discussed case, and agree with decision making with Dr Brewer feeling better. Does not recall having abdominal pain through the night. Tolerating clear liquids well. No bowel movements today. Vitals noted, in general she is awake and alert pleasant no distress. HEENT normocephalic atraumatic mucous membranes moist. Breathing unlabored no accessory muscle use good effort. Abdomen is soft nondistended nontender no masses organomegaly. Abdominal pain/leukocytosis/severe atherosclerosis/presumed CAD with demand ischemiait really seems like it is either fairly benign acute illness essentially an enteritis (viral versus foodborne) superimposed on a woman who had previously undefined but severe atherosclerotic vascular diseaseand the enteritis would be responsible for abdominal symptoms/leukocytosis, and her brittle atherosclerotic disease would allow a fairly significant degree of demand ischemia to have precipitated simply from that stress; or, conversely, that this is all related to her diffuse vascular disease and a hypertensive crisis precipitated vasospastic mesenteric ischemia/ischemic colitis that allowed for the infectious enteritis to overgrow, while simultaneously precipitating demand ischemia. Fortunately her overall benign hospital course pleads towards the former, but it is kind of hard to rule out the latter. At the same time, it is largely academic given that she does appear to warrant a course of antibiotics for enteric coverage, warrant hypertension management, and warranted management for her atherosclerotic disease and presumed coronary disease. As a no surprise, her echo looks very reassuring (I was concerned that we may find anterior wall motion abnormalities given her troponin and EKG showing flipped T's anteriorly compared to previous)and given that she does not have any anginal symptoms at home, right now med management, followed by outpatient cardiac workup seems most appropriate. We also discussed smoke cessationand we agreed that she is doing remarkably well for being about 2 days since her last cigarette (even declining a nicotine patch) and that it would be well worthwhile for her long-term health for her to consider her "quit date" to have been 2 days ago. - clear liquid diet advance as tolerated - continue antibiotic coverage for enteric gram-negative/anaerobes build med management for presumed coronary disease/atherosclerotic disease Add Lovenox for DVT prophylaxis Subjective Patient is resting in bed comfortably on arrival this morning. She denies abdominal pain. She would like to know when she can go home. Per nurse, patient had trouble swallowing pills overnight and into this morning. Review of Systems Review of Systems: All systems reviewed & are unremarkable except as noted in HPI & below Physical Exam Physical Exam: General: No acute distress HEENT: PERRLA. Normal conjunctiva, anicteric sclera. Oropharynx normal. Respiratory: Normal respiratory effort, CTABL. Cardiovascular: RRR without murmurs, gallops, or rubs. No pedal edema. GI: Soft abdomen with normal bowel sounds heard on auscultation. Nontender x4 quadrants Neuro: Alert and oriented x3. Results & Data Results & Data Vital Signs (Past 12 Hours) Vital Signs Temp Pulse Pulse Resp BP BP Pulse Ox 02/22/24 03:32 37.1 C 02/22/24 03:28 87 18 122/63 95 02/22/24 00:36 113/65 02/22/24 00:30 77 113/65 02/22/24 00:08 36.7 C 02/22/24 00:05 95 H 188/92 H 02/21/24 23:57 102 H 02/21/24 23:52 100 H 18 188/92 H 97 02/21/24 23:33 95 H 18 99 02/21/24 23:03 94 H 16 99 02/21/24 23:01 154/97 H 02/21/24 22:54 103 H 18 92 02/21/24 22:30 106 H 16 98 02/21/24 22:29 157/90 H 02/21/24 22:12 159/81 H 02/21/24 22:09 159/81 H 02/21/24 22:09 96 H 23 98 02/21/24 22:00 96 H 16 99 02/21/24 21:38 98 H 202/89 H 99 02/21/24 21:36 94 H 17 100 02/21/24 21:27 92 H 18 98 02/21/24 21:25 02/21/24 21:10 100 H 02/21/24 20:36 92 H 12 02/21/24 20:27 02/21/24 20:00 84 14 02/21/24 19:41 37.1 C 84 18 165/87 H 94 02/21/24 19:33 80 14 O2 Del Method 02/22/24 03:32 02/22/24 03:28 Room Air 02/22/24 00:36 02/22/24 00:30 02/22/24 00:08 02/22/24 00:05 02/21/24 23:57 02/21/24 23:52 Room Air 02/21/24 23:33 02/21/24 23:03 02/21/24 23:01 02/21/24 22:54 02/21/24 22:30 02/21/24 22:29 02/21/24 22:12 02/21/24 22:09 02/21/24 22:09 02/21/24 22:00 02/21/24 21:38 Room Air 02/21/24 21:36 02/21/24 21:27 02/21/24 21:25 Room Air 02/21/24 21:10 02/21/24 20:36 02/21/24 20:27 Room Air 02/21/24 20:00 02/21/24 19:41 Room Air 02/21/24 19:33 Resident Activity Tracking Resident Involvement: Resident Care Provided Care Provided: Adult Hospital Medicine (1) Abdominal pain Abdominal location: unspecified location Qualified Code(s): R10.9 - Unspecified abdominal pain
[2024-02-22 07:23] LABS: Basophils # (auto) 0.06 K/uL (0.00-0.20); Basophils % (auto) 0.3 %; Eosinophils # (auto) 0.01 K/uL (0.00-0.50); Eosinophils % (auto) 0.1 %; Hemoglobin 10.9 g/dl (12.0-16.0); Immature Granulocytes # (auto) 0.06 K/uL (0.01-0.20); Immature Granulocytes % (auto) 0.3 %; Lymphocytes # (auto) 0.72 K/uL (1.20-3.40); Mean Corpuscular Hemoglobin 28.9 pg (25.0-34.0); Mean Corpuscular Volume 87.5 fL (80.0-100.0); Mean Platelet Volume 8.8 fL (9.4-12.4); Monocytes # (auto) 1.38 K/uL (0.11-0.59); Monocytes % (auto) 7.7 %; Neutrophils # (auto) 15.66 K/uL (1.40-6.50); Neutrophils % (auto) 87.6 %; Platelet Count 414 K/uL (130-400); RDW Coefficient of Variation 12.7 % (11.5-14.5); RDW Standard Deviation 40.6 fL (36.4-46.3); Red Blood Count 3.77 M/uL (4.20-5.40); White Blood Count 17.89 K/ul (4.8-10.8)
[2024-02-22 07:49] LABS: Albumin Globulin Ratio 0.9 (0.9-2); BUN Creatinine Ratio 21.5 (10-20); Bilirubin,Total 0.6 mg/dl (0.2-1.0); Calcium 8.2 mg/dl (8.6-10.3); Chol HDL Ratio 2.4 (0-5); Creatinine Clr Calc Pharmacy 45.3 ml/min; Est GFR (African American) 90.4 ml/min; Globulin 3.2 gm/dl (2.5-4.0); Magnesium 1.1 mg/dl (1.7-2.4); Phosphorus 3.5 mg/dl (2.5-4.9); Potassium 3.5 mmol/L (3.5-5.1); Total Protein 6.2 gm/dl (6.0-8.3)
[2024-02-22 07:56] LABS: Estimated Average Glucose 123 mg/dl; Hemoglobin A1C 5.9 % (4.5-5.6)
[2024-02-22] MEDS ORDERED: lisinopril 5 MG TAB PO SCH (09:00)
--- NOTE | 2024-02-22 10:07 | XCELERA ---
[id number] [id number]
[2024-02-22] MEDS: MAGNESIUM SULFATE / D5W 1 GM/100 ML BAG IV SCH (11:13)
--- NOTE | 2024-02-22 14:15 | Billing Data ---
Date of Service February 22, 2024 Coding Level of Care Code 51634 SUB INP/OBS CARE
[2024-02-22] MEDS: LOSARTAN/HCTZ 50/12.5MG TAB PO SCH ×2 (15:33→15:34)
--- NOTE | 2024-02-22 15:44 | Surgery Progress Note ---
Date of Service February 22, 2024 Assessment & Plan (1) Abdominal pain: Plan: CT on admission had shown a dilated loop of small bowel. Symptoms (diarrhea and crampy pain) may have been related to enteritis. No signs of acute ischemia. Agree with advancement of diet. Cardiac issues (elevated troponin, EKG changes) being managed by medicine. Will sign off as abdominal issues have resolved. Please call with questions. Admission and Anticipated Discharge Date Admission Date: February 21, 2024 Subjective No further abdominal pain. Tolerating liquids. No nausea. Physical Exam Constitutional: WD/WN, vitals as above Respiratory: normal respiratory effort, lungs clear to auscultation Gastrointestinal (Abdomen): normal bowel sounds, soft, nontender, no hepatosplenomegaly (no further tenderness in left lower quadrant) Musculoskeletal: Extremities: extremities normal to inspection Neurologic: awake; no focal motor deficits Psychiatric: A+Ox3, euthymic affect Results & Data Vital Signs (Past 12 Hours) Vital Signs Temp Pulse Pulse Resp BP Pulse Ox O2 Del Method 02/22/24 15:28 37.0 C 80 16 136/63 02/22/24 11:00 36.5 C 84 18 155/66 H 94 Room Air 02/22/24 09:47 83 02/22/24 09:23 Room Air 02/22/24 07:30 37.2 C 72 16 169/68 H Laboratory Results Abnormal lab results 02/21/24 02/21/24 02/22/24 Range/Units 15:42 23:01 07:05 WBC 20.98 H 17.89 H (4.8-10.8) K/ul RBC 3.77 L (4.20-5.40) M/uL Hgb 10.9 L (12.0-16.0) g/dl Hct 33.0 L (37.0-47.0) % Plt Count 498 H 414 H (130-400) K/uL MPV 8.9 L 8.8 L (9.4-12.4) fL Neut # (Auto) 18.63 H 15.66 H (1.40-6.50) K/uL Lymph # (Auto) 0.73 L 0.72 L (1.20-3.40) K/uL [place] # (Auto) 1.38 H 1.38 H (0.11-0.59) K/uL Sodium 135 L (136-145) mmol/L BUN/Creatinine Ratio 21.4 H 21.5 H (10-20) Hemoglobin A1c 5.9 H (4.5-5.6) % Calcium 8.2 L (8.6-10.3) mg/dl Magnesium 1.1 L (1.7-2.4) mg/dl Troponin I High Sens 624.6 H* D (0-14) pg/ml Albumin 3.0 L (3.4-5.0) gm/dl Lipase 95 H (11-82) U/L (1) Abdominal pain Abdominal location: unspecified location Qualified Code(s): R10.9 - Unspecified abdominal pain
[2024-02-22] MEDS ORDERED: LABETALOL HCL 100 MG TAB PO SCH (21:00)
[2024-02-22] MEDS: LACTATED RINGER'S 1,000 ML IV SCH (23:37)
[2024-02-23 07:50] LABS: Hematocrit (blood only) 34.6 % (37.0-47.0); Hemoglobin 11.8 g/dl (12.0-16.0); Mean Corpuscular Hemoglobin 29.4 pg (25.0-34.0); Mean Corpuscular Hgb Conc 34.1 g/dL (32.0-36.0); Mean Corpuscular Volume 86.3 fL (80.0-100.0); Mean Platelet Volume 9.7 fL (9.4-12.4); Platelet Count 448 K/uL (130-400); RDW Coefficient of Variation 12.3 % (11.5-14.5); Red Blood Count 4.01 M/uL (4.20-5.40); White Blood Count 18.64 K/ul (4.8-10.8)
[2024-02-23 08:08] LABS: Albumin Globulin Ratio 0.9 (0.9-2); Albumin Level 2.7 gm/dl (3.4-5.0); BUN Creatinine Ratio 23.2 (10-20); Bilirubin,Total 0.4 mg/dl (0.2-1.0); Creatinine Clr Calc Pharmacy 43.7 ml/min; Est GFR (African American) 86.4 ml/min; Est GFR (Non-African American) 74.6 ml/min; Magnesium 2.3 mg/dl (1.7-2.4); Potassium 2.9 mmol/L (3.5-5.1); Total Protein 5.7 gm/dl (6.0-8.3)
[2024-02-23 08:14] LABS: Basophils # (auto) 0.06 K/uL (0.00-0.20); Basophils % (auto) 0.3 %; Eosinophils # (auto) 0.02 K/uL (0.00-0.50); Eosinophils % (auto) 0.1 %; Immature Granulocytes % (auto) 1.1 %; Lymphocytes # (auto) 0.83 K/uL (1.20-3.40); Lymphocytes % (auto) 4.5 %; Monocytes # (auto) 0.96 K/uL (0.11-0.59); Monocytes % (auto) 5.2 %; Neutrophils # (auto) 16.57 K/uL (1.40-6.50); Neutrophils % (auto) 88.8 %
[2024-02-23] MEDS: ENOXAPARIN INJ 40 MG/0.4 ML SYR SQ SCH (08:52)
--- NOTE | 2024-02-23 09:27 | Hospitalist Progress Note ---
Date of Service February 23, 2024 Assessment & Plan (1) Abdominal pain: Plan: 68 F presenting with diffuse afebrile abdominal pain found to have significant leukocytosis and elevated troponin on evaluation. Now admitted for further diagnostic assessment, pain management. Abdominal Pain/Leukocytosis -Etiology unclear. WBC 20.96, plt-572, 2+ proteinuria, 2+ ketonuria, 3+ leuk esterase on admission. LFTs also normal. Lactate normal. 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 General surgery consulted as precaution. -Differential also included enterocolitis, gastritis, pancreatitis, cholecystitis, though less likely in the absence of fever. -Admitted to [facility] telemetry, then PCU due to hypertensive emergency (see below). -Now downgraded back to [facility] telemetry following resolution of aforementioned hypertension. -Discontinued IV Dilaudid last used >24 hours ago. * IV ceftriaxone 2 g daily * P.o. vancomycin 125 mg 4 times daily x 10 days * Trend CBC C. difficile diarrhea -At least 3 episodes of watery stools since last night, per nursing. RLQ pain. No diarrhea on admission. -Do not suspect colitis, given patient was started on antibiotics with ample gram-negative, anaerobic coverage yesterday. -C. difficile, CRP ordered C. difficile positive, CRP-32. Stopped IV metronidazole. * Started p.o. vancomycin 125 mg 4 times daily x 10 days * Resumed maintenance IVF * Replete electrolytes as indicated Hypertensive Emergency resolved -Multiple SBP readings >210 over DBP readings >110 on admission. -Started on nicardipine drip to bring SBP <180. -Patient received IV labetalol 10 mg x 2 doses overnight. -Switch to p.o. antihypertensives delayed due to patient's dysphagia. Now cleared for p.o. administration following evaluation by speech therapy. -BP improved to 110s-120s systolic over 60s-70s diastolic since administration of first dose of HCTZ/losartan 12.5-50 mg. Consider at goal * P.o. HCTZ/losartan 50/12.5 mg daily. Will continue at discharge. * As needed IV labetalol 10 mg (SBP >190, DBP >110). Elevated Troponin resolved -781.7 on admission. Repeat 624.6. Patient asymptomatic. Consider resolved. -Concern for demand ischemia given evidence of severe intra-abdominal vascular disease. Patient also a smoker (half a pack daily). -Lipid profile normal, [id number]-8.9% * Atorvastatin 80 mg daily * Aspirin 81 mg daily Dysphagia -Discovered postadmission, as patient unable to tolerate p.o. administration. -Speech/swallow evaluation ordered: Recommended initiation clear liquid diet. * Advance diet to soft bite sized if able to tolerate CLD * Nutrition consult placed Code: DNR/DNI Dispo: PCU. Downgrading to MedSurg telemetry. FEN/GI: LR @maintenance rate. Clear liquid diet DVT Prophylaxis: Lovenox 40 mg q24h PT/OT: No Consults: General Surgery, speech Case Management: No (2) C. difficile diarrhea: (3) Elevated troponin: (4) Hypertensive emergency: (5) DVT prophylaxis: (6) Dysphagia: Admission and Anticipated Discharge Date Admission Date: February 21, 2024 Supervising Physician Co-Signing Physician Notes I personally examined the patient and verified all burgess points of history and exam, discussed case, and agree with decision making with Dr Brewer Feeling worse again. Abdominal cramping and abdominal pain. As well as some diarrhea. she also surprised with how weak she is. Vitals noted, awake and alert fatigued appears mildly uncomfortable. HEENT normocephalic atraumatic mucous membranes moist. Breathing unlabored no accessory muscle use good effort. Skin without rashes pallor or icterus. Abdomen soft moderately distended moderate diffuse tenderness without guarding rebound or rigidity. Skin without rashes pallor or icterus. Neuro shows no focal deficits. Abdominal pain/leukocytosis/severe atherosclerosis/presumed CAD with demand ischemiait really seems like it is either fairly benign acute illness essentially an enteritis (viral versus foodborne) superimposed on a woman who had previously undefined but severe atherosclerotic vascular diseaseand the enteritis would be responsible for abdominal symptoms/leukocytosis, and her brittle atherosclerotic disease would allow a fairly significant degree of demand ischemia to have precipitated simply from that stress; or, conversely, that this is all related to her diffuse vascular disease and a hypertensive crisis precipitated vasospastic mesenteric ischemia/ischemic colitis that allowed for the infectious enteritis to overgrow, while simultaneously precipitating demand ischemia. Fortunately her overall benign hospital course pleads towards the former, but it is kind of hard to rule out the latter. At the same time, it is largely academic given that she does appear to warrant a course of antibiotics for enteric coverage, warrant hypertension management, and warranted management for her atherosclerotic disease and presumed coronary disease. As a no surprise, her echo looks very reassuring (I was concerned that we may find anterior wall motion abnormalities given her troponin and EKG showing flipped T's anteriorly compared to previous)and given that she does not have any anginal symptoms at home, right now med management, followed by outpatient cardiac workup seems most appropriate. On 02/21, we also discussed smoke cessationand we agreed that she is doing remarkably well for being about 2 days since her last cigarette (even declining a nicotine patch) and that it would be well worthwhile for her long-term health for her to consider her "quit date" to have been 2 days ago. ---> Today felt worse againa little bit concerning, stool for C. difficile is more consistent with a carrier state than active infection, but given that she does have at least a carrier state and GI symptoms, not unreasonable to have her on vancomycin for possible C. difficile infection, as well as prophylaxis given that we have her on antibiotics for her enteritis and she is a known carrier (most literature really looks that if somebody had a recent C. difficile infectionbut given that she shows 2 potential reasons to be on vancomycin, and is reasonably ill, will treat and follow) - full liquid diet advance as tolerated - continue antibiotic coverage for enteric gram-negative/anaerobes build med management for presumed coronary disease/atherosclerotic disease Lovenox for DVT prophylaxis PT/OT eval and treat, encouraged her to be out of bed. Subjective Patient is awake in the right lateral recumbent position on arrival this morning. She reports having multiple episodes of diarrhea overnight. She feels "like shit." Per nursing, stools have all been watery. She also reports right lower quadrant abdominal pain. She denies headache, shortness of breath, chest pain, or nausea. Review of Systems Review of Systems: All systems reviewed & are unremarkable except as noted in HPI & below Physical Exam Physical Exam: General: Appears uncomfortable HEENT: PERRLA. Normal conjunctiva, anicteric sclera. Oropharynx normal. Respiratory: Normal respiratory effort. Slight crackles, which cleared after cough. Cardiovascular: RRR without murmurs, gallops, or rubs. No pedal edema. GI: Mild/mod RLQ ttp. No TTP at other quadrants. No flank tenderness. Fecal incontinence noted. Neuro: Alert and oriented x3. Results & Data Results & Data Vital Signs (Past 12 Hours) Vital Signs Temp Pulse Pulse Resp BP Pulse Ox O2 Del Method 02/23/24 07:31 36.5 C 72 18 120/71 92 Room Air 02/23/24 02:26 36.7 C 80 29 H 138/72 92 Nasal Cannula 02/22/24 23:17 77 02/22/24 22:48 36.9 C 76 29 H 119/55 L 93 Room Air O2 Flow Rate 02/23/24 07:31 02/23/24 02:26 2.0 02/22/24 23:17 02/22/24 22:48 Chemistry Results CMP Results: Na 131 mmol/L (136-145) L 02/23/24 K 2.9 mmol/L (3.5-5.1) L 02/23/24 Cl 98 mmol/L (98-107) 02/23/24 CO2 26 mmol/L (21-32) 02/23/24 Anion Gap 7 (3-11) 02/23/24 BUN 19 mg/dl (6-23) 02/23/24 Creatinine 0.82 mg/dl (0.6-1.2) 02/23/24 Estimated GFR ( Amer) 86.4 ml/min 02/23/24 Estimated GFR (Non-Af Amer) 74.6 ml/min 02/23/24 BUN/Creatinine Ratio 23.2 (10-20) H 02/23/24 Glu 116 mg/dl (70-99(Fasting)) H 02/23/24 Ca 8.0 mg/dl (8.6-10.3) L 02/23/24 Phosphorus Level 3.5 mg/dl (2.5-4.9) 02/22/24 Total Bilirubin 0.4 mg/dl (0.2-1.0) 02/23/24 AST 18 U/L (13-39) 02/23/24 ALT 9 U/L (7-52) 02/23/24 Alkaline Phosphatase 59 U/L (34-104) 02/23/24 TP 5.7 gm/dl (6.0-8.3) L 02/23/24 Albumin 2.7 gm/dl (3.4-5.0) L 02/23/24 Globulin 3.0 gm/dl (2.5-4.0) 02/23/24 Albumin/Globulin Ratio 0.9 (0.9-2) 02/23/24 Resident Activity Tracking Resident Involvement: Resident Care Provided Care Provided: Adult Hospital Medicine (1) Abdominal pain Abdominal location: unspecified location Qualified Code(s): R10.9 - U nspecified abdominal pain
[2024-02-23 09:59] LABS: C Reactive Protein 32.07 mg/dl (0-0.5)
[2024-02-23 09:59] LABS: Cdiff Toxin B Gene (2yr or >) Positive Cdiff Gene (Neg)
[2024-02-23] MEDS: POTASSIUM CHLORIDE / WTR 10 MEQ/100 ML PLCT IV SCH (10:15)
[2024-02-23] MEDS: POTASSIUM CHLORIDE 20 MEQ/15 ML UDC PO SCH (10:15)
[2024-02-23 10:35] LABS: Cdiff Antigen Positive; Cdiff Toxin A+B Negative Cdiff Toxin (Negative)
[2024-02-23] MEDS: FIDAXOMICIN 200 MG TAB PO SCH (11:42)
[2024-02-23] MEDS: POTASSIUM CHLORIDE PWD 20 MEQ PACK PO SCH (11:42)
[2024-02-23] MEDS: ALUMINUM/MAGNESIUM/SIMETH (MAALOX MAX) 30 ML UDC PO PRN (12:43)
[2024-02-23] MEDS: CHERRY SYRUP 5 ML UDP PO SCH (12:54)
[2024-02-23] MEDS: VANCOMYCIN HCL 125 MG/2.5ML SOLN PO SCH (12:54)
[2024-02-23] MEDS: ACETAMINOPHEN 1,000 MG/100 ML VIAL IV STA (14:57)
[2024-02-23] MEDS: ONDANSETRON INJ 2 MG/ML 2 ML VIAL IV PRN (15:44)
--- NOTE | 2024-02-23 15:55 | Billing Data ---
Date of Service February 23, 2024 Coding Level of Care Code 55079 SUB INP/OBS CARE MIN
[2024-02-23] MEDS: LORazepam 0.5 MG in SYRINGE 0.25 ML IV STA (16:16)
[2024-02-23 16:19] LABS: HCO3 VBG 26 mmol/L; Oxygen Saturation VBG 73.8 %; PCO2 VBG 36 mmHg (38-50); PO2 VBG 43 mmHg; pH VBG 7.46 (7.36-7.41)
--- NOTE | 2024-02-23 17:09 | XRay Report ---
SINGLE VIEW CHEST CLINICAL HISTORY: Dyspnea FINDINGS: An AP, portable, upright chest radiograph is compared to study dated 03/15/2022. Correlation is made with abdominal CT dated 02/21/2024. The heart is top normal for projection noting atherosclero tic calcification of the thoracic aorta. The pulmonary vasculature is not congested. Emphysema and ch ronic interstitial thickening is similar to previous. A small right pleural effusion is suspected and there are airspace opacities at the right lung base. No pneumothorax is seen. The skeletal structure s are osteopenic. The bony thorax is grossly intact. There is moderate S-shaped thoracolumbar scolios is. IMPRESSION: 1. Emphysema. 2. There is a small right pleural effusion with right basilar opacities. This could represent atelect asis versus an infectious/inflammatory pneumonitis. Clinical correlation will be required and radiogr aphic follow-up to resolution is recommended. ACT 112: Negative or not required by law. Electronically signed by: Minesh Hylton M.D. 02/23/2024 5:07 PM
[2024-02-23 17:22] LABS: Base Excess ABG 2.4 mEq/L (-9-1.8); HCO3 ABG 26 mmol/L (19-24); Oxygen Saturation ABG 95.8 % (90-95); PCO2 ABG 38 mmHg (35-46); PO2 ABG 72 mmHg (80-95); pH ABG 7.45 (7.35-7.45)
[2024-02-23 17:23] LABS: Allen Test Pos (Pos)
[2024-02-23] MEDS: OPTIRAY 320 150ml IV ONE (17:55)
[2024-02-23] MEDS: metroNIDAZOLE 500 MG/100 ML BAG IV SCH (18:27)
[2024-02-23] MEDS: HYDROmorphone INJ 0.5 MG/0.5 ML SYR IV STA (18:30)
[2024-02-23] MEDS: LABETALOL HCL IV 5 MG/ML 20ML IV PRN (18:49)
--- NOTE | 2024-02-23 19:21 | CT Scan Report ---
CT ANGIOGRAM OF THE CHEST CLINICAL HISTORY: Hypoxia COMPARISON STUDY: Chest x-ray dated 03/04/2024. TECHNIQUE: Following the IV administration of 120 cc of Optiray 320, CT angiogram of the chest was pe rformed from the upper abdomen to the thoracic inlet utilizing the pulmonary embolus protocol. Images are reviewed in the axial, sagittal, and coronal planes. 3-D MIPS images are created and assessed. I V contrast was administered without complication. A dose lowering technique was utilized adhering to the principles of ALARA. CT DOSE: 282.62 mGy.cm FINDINGS: Thyroid: Imaged portions of the thyroid gland are normal in size and attenuation. Thoracic aorta: There is atherosclerotic calcification of the thoracic aorta, which is normal in luis fer and demonstrates standard 3-vessel arch anatomy. No dissection is seen. Pulmonary vasculature: The pulmonary trunk is normal in caliber. There are no filling defects identif ied in main, lobar, or segmental pulmonary branches to suggest pulmonary embolus. Heart: The heart is mildly enlarged and without pericardial effusion. The coronary arteries are dense ly calcified. Lungs and pleural spaces: There is moderate to advanced emphysema. There are small right and trace le ft pleural effusions with dependent consolidation. There is a 3.7 x 2.9 x 1.6 cm spiculated mass at t he left apex seen on image #152. This approaches the left suprahilar region. The trachea is clear. Se cretions/debris is seen within the mainstem bronchi and lower lobe airways bilaterally. A 5 mm left u pper lobe pulmonary nodule is seen on image #125. A 9 mm irregular opacity in the right lower lobe is seen on image #134. Mediastinum: Mildly enlarged prevascular nodes measure up to 10 mm in short axis. Naomie: Mildly enlarged left hilar nodes measure up to 11 mm short axis. No right hilar adenopathy is s een. Axillae: There is no axillary lymphadenopathy. Upper abdomen: The esophagus is distended and patulous, and filled with fluid level of the thoracic i nlet. There is a moderate hiatal hernia. The esophagus appears diffusely thick walled. There is trace perihepatic ascites. No adrenal lesion is seen. Skeletal structures: The skeletal structures are osteopenic. There is degenerative change and S-shape d thoracal lumbar scoliosis seen in the spine. Arthritic change is noted in the shoulders. No lytic o r blastic bony lesions are seen. IMPRESSION: 1. There is no evidence of pulmonary embolus in the main, lobar, or segmental pulmonary arteries. 2. Cardiomegaly and emphysema. 3. There is a 3.7 cm spiculated mass at the left apex. A bronchogenic neoplasm is the diagnosis of ex clusion. Pulmonology evaluation is advised. 4. Right larger than left pleural effusions with dependent consolidation. This could represent atelec tasis versus a pneumonitis. Correlate clinically. 5. The esophagus appears diffusely thick-walled, and is filled with fluid to the level of the thoraci c inlet. Correlate clinically for evidence of esophagitis. Note that this places the patient at risk for aspiration, and there is fluid/debris within the lower lobe airways bilaterally. 6. Hiatal hernia. 7. Mildly enlarged left hilar and prevascular nodes are nonspecific. Metastatic alicia involvement is not excluded. 8. There are additional nodular opacities in the left upper lobe and in the right lower lobe. Attenti on at follow-up will be required. 9. Trace perihepatic ascites. 10. Additional findings as above. ACT 112: Positive. There are findings on this exam that require communication between the performing entity and the patient following Patient Test Result Information Act ([place] Act 112) guidelines. Electronically signed by: Minesh Hylton M.D. 02/23/2024 7:19 PM
[2024-02-23] MEDS ORDERED: HYDROmorphone INJ 0.5 MG/0.5 ML SYR IV PRN (20:17)
[2024-02-23] MEDS: HYDROmorphone INJ 0.5 MG/0.5 ML SYR IV PRN (20:34)
[2024-02-23] MEDS: methylPREDNISolone 40 MG in SYRINGE 0 ML IV ONE (20:34)
[2024-02-23] MEDS ORDERED: methylPREDNISolone 10 mg/mL (For Ped Dose < 7mg) IV SCH (21:00)
[2024-02-23] MEDS: AZITHROMYCIN 500 MG in DEXTROSE 5% 250 ML IV SCH (21:11)
[2024-02-23] MEDS: PANTOprazole 40 MG in SYRINGE 0 ML IV SCH (21:11)
[2024-02-23] MEDS ORDERED: methylPREDNISolone 125 MG/2 ML VIAL IV ONE (21:15)
--- NOTE | 2024-02-23 21:37 | Communication Note ---
Date of Service: February 23, 2024 Patient seen at bedside. Expresses that she would like to be doen with medical care, and is interested in pursuing comfort/hospice options. Expresses that she has cancer that she is not interested in treating, and thinks she wants to focus on comfort. She does not some of this comes from frustration at her course and being in the hospital. DIscussed various options including current care, [employer], and palliative referral. On shared decision making patient would like to continue current treatment, but also meet with palliative care in the morning to discuss what hospice options would look like and make a decision with her primary team at that time. No other questions or concerns at bedside.Palliative consulted
[2024-02-24] MEDS: ALBUT/IPRATROP 3MG/0.5MG NEB 3 ML VIAL NEB SCH (07:16)
[2024-02-24 07:37] LABS: Albumin Globulin Ratio 0.9 (0.9-2); Albumin Level 2.8 gm/dl (3.4-5.0); BUN Creatinine Ratio 26.1 (10-20); Bilirubin,Total 0.3 mg/dl (0.2-1.0); Calcium 8.1 mg/dl (8.6-10.3); Creatinine Clr Calc Pharmacy 30.1 ml/min; Est GFR (African American) 55.1 ml/min; Est GFR (Non-African American) 47.5 ml/min; Globulin 3.2 gm/dl (2.5-4.0); Potassium 3.7 mmol/L (3.5-5.1)
[2024-02-24 07:44] LABS: Basophils # (auto) 0.01 K/uL (0.00-0.20); Echinocytes 1+; Eosinophils # (auto) 0.27 K/uL (0.00-0.50); Eosinophils % (auto) 1.1 %; Hematocrit (blood only) 36.3 % (37.0-47.0); Hemoglobin 12.2 g/dl (12.0-16.0); Immature Granulocytes # (auto) 0.13 K/uL (0.01-0.20); Immature Granulocytes % (auto) 0.6 %; Lymphocytes # (auto) 0.55 K/uL (1.20-3.40); Lymphocytes % (auto) 2.3 %; Mean Corpuscular Hemoglobin 29.3 pg (25.0-34.0); Mean Corpuscular Hgb Conc 33.6 g/dL (32.0-36.0); Mean Corpuscular Volume 87.3 fL (80.0-100.0); Mean Platelet Volume 9.6 fL (9.4-12.4); Monocytes # (auto) 0.64 K/uL (0.11-0.59); Monocytes % (auto) 2.7 %; Neutrophils # (auto) 21.94 K/uL (1.40-6.50); Neutrophils % (auto) 93.3 %; Platelet Count 511 K/uL (130-400); RDW Standard Deviation 41.4 fL (36.4-46.3); Red Blood Count 4.16 M/uL (4.20-5.40); Toxic Vacuolation 1+; White Blood Count 23.54 K/ul (4.8-10.8)
[2024-02-24] MEDS: methylPREDNISolone 40 MG in SYRINGE 0 ML IV SCH (08:00)
--- NOTE | 2024-02-24 08:58 | Hospitalist Progress Note ---
Date of Service February 24, 2024 Assessment & Plan (1) Abdominal pain: Plan: 68 F presenting with diffuse abdominal pain found to have significant leukocytosis and elevated troponin on evaluation. Now admitted for further diagnostic assessment and pain management. After discussion with palliative med (02/23), pt has decided to proceed with comfort care while hospitalized with plan to discharge home with hospice. Abdominal pain with leukocytosis - Etiology remains unclear. WBC 20.96, plt-572, 2+ proteinuria, 2+ ketonuria, 3+ LE on admission. LFTs normal. 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 difficile, CRP ordered: C. difficile gene positive, toxin negative, CRP-32 - do not suspect active c diff infection Hypertensive emergency resolved - multiple SBP readings >210 over DBP readings >110 on admission - started on nicardipine drip to bring SBP <180; s/p IV labetalol 10 mg x 2 doses- was switched successfully to PO meds which had pt under adequate control - will d/c antihypertensives as transition to comfort care Elevated troponin resolved - 781.7 on admission. Repeat 624.6. Patient asymptomatic. - Most likely demand ischemia given evidence of severe intra-abdominal vascular disease - Lipid profile normal, [id number]-4.9% - discontinue atorvastatin 80 mg daily and aspirin 81 mg daily Dysphagia - discovered postadmission, as patient unable to tolerate PO administration - pt does have hx of esophageal cancer for which she has not received tx and does not wish to begin tx; CTA revealed a new left lung mass which may be indicative of (most likely) metastasis vs. new primary malignancy - speech/swallow eval recommended initiation clear liquid diet; may consider advancing diet to soft bite sized if able to tolerate/pt wishes Code: DNR/DNI Dispo: downgrade to med/surg FEN/GI: full liquid DVT Prophylaxis: Lovenox 40 mg q24h (2) Elevated troponin: (3) Hypertensive emergency: (4) DVT prophylaxis: (5) Dysphagia: (6) Diarrhea: Admission and Anticipated Discharge Date Admission Date: February 21, 2024 Supervising Physician Co-Signing Physician Notes I also saw the patient with the resident physician and confirmed burgess portions of the clinical history and physical exam. I also personally discussed the case with the palliative care consulted. I agree with the impression and plan as noted in the resident documentation above. She has elected hospice; case management made aware. She had some increased abdominal pain during our visit; prn pain medications ordered. Subjective Pt doing ok this morning. She notes her abdomen still hurts but felt better than previous. She no longer required oxygen. She relays to me that she was diagnosed with esophageal cancer ~1.5 yrs ago and has not had treatment for this and does not want any treatment for this. Review of Systems Review of Systems: As per HPI Physical Exam Physical Exam: Constitutional: ill appearing, no acute distress HEENT: normocephalic, no conjunctival injection CV: RRR, no murmur, no LE edema Respiratory: CTA bilaterally. No rhonchi, wheezes, or crackles. No increased work of breathing GI: soft, distended, tender with palpation of RLQ and epigastric region, + bowel sounds MSK: no gross deformities noted Skin: warm, dry Neuro: alert, oriented, no FND noted Psych: mood and affect congruent Results & Data Results & Data Vital Signs (Past 12 Hours) Vital Signs Temp Pulse Pulse Resp BP BP Pulse Ox 02/24/24 07:47 02/24/24 07:23 36.4 C L 65 23 139/74 91 02/24/24 07:19 66 20 90 02/24/24 04:00 61 18 150/75 H 92 02/24/24 02:51 36.4 C L 59 L 20 167/90 H 99 02/24/24 00:30 56 L 136/80 02/24/24 00:28 60 02/24/24 00:23 56 L 136/80 02/24/24 00:07 60 191/96 H 02/23/24 23:47 61 20 92 02/23/24 23:32 36.3 C L 60 18 163/80 H 92 O2 Del Method O2 Flow Rate 02/24/24 07:47 Room Air 06/10/24 07:23 Nasal Cannula 02/24/24 07:19 Room Air 02/24/24 04:00 Nasal Cannula 2 02/24/24 02:51 Nasal Cannula 2.5 02/24/24 00:30 02/24/24 00:28 02/24/24 00:23 02/24/24 00:07 02/23/24 23:47 Nasal Cannula 2 02/23/24 23:32 Nasal Cannula 2.5 Resident Activity Tracking Resident Involvement: Resident Care Provided Care Provided: Adult Hospital Medicine (1) Abdominal pain Abdominal location: unspecified location Qualified Code(s): R10.9 - Unspecified abdominal pain
[2024-02-24] MEDS ORDERED: ACETAMINOPHEN 325 MG TAB PO PRN (09:19)
--- NOTE | 2024-02-24 09:30 | Palliative Care Consultation ---
Date of Consultation February 24, 2024 Assessment & Plan (1) Cancer related pain: (2) Dyspnea and respiratory abnormalities: (3) Palliative care by specialist: (4) Advanced care planning/counseling discussion: face to face with pt at bedside x 30min for ACP together with care mgt she is very well versed in her illness and awareness of her mortality recognizes her overall decline in past year and notes her cancer is not treated, per her choice she does not want to pursue any aggressive/escalating care she states she has looked into and desires hospice admission at home, her friend Mirtha will help support and when the time comes she is no longer safe at home or Mirtha cannot manage then hospice placement will be ok with her but not right now CM aware, present for discussion Primary team updated [facility] written transfer to private room, stop monitors etc (5) Encounter for hospice care discussion: Plan as above for hospice at home, assure meds are oral liquids given impaired swallow once accurate daily use is determine, transitioning to TDF is reasonable/pt agreed Thank you for allowing us to participate in the ongoing care of this patient. Please page with any additional concerns. Vivi Hilton DNP Director, Palliative Medicine History of Present Illness Reason for Consultation: pt request Attending Physician: Ezekiel Molina DO History of Present Illness 68yo female admitted 02/21/24, presenting with diffuse afebrile abdominal pain found to have significant leukocytosis and elevated troponin on evaluation per chart review: "February 23, 2024 - Patient seen at bedside. Expresses that she would like to be done with medical care, and is interested in pursuing comf ort/hospice options. Expresses that she has cancer that she is not interested in treating, and thinks she wants to focus on comfort. She does not some of this comes from frustration at her course and being in the hospital. DIscussed various options including current care, [facility], and palliative referral. On shared decision making patient would like to continue current treatment, but also meet with palliative care in the morning to discuss what hospice options would look like and make a decision with her primary team at that time. No other questions or concerns at bedside.Palliative consulted" prior hx esophageal ca about 16mos ago, followed by OSH provider at [facility] Pt states she elected no cancer rx, does not want chemo, rt or surgery. she and oncology agreed to let the cancer 'run its course and focus on my QOL' she states she wants to go home, be comfortable and not return to hospital She wants to transition to hospice and states her esoph cancer pain is increasing and impairing swallow at times, sometimes painful swallow inhibit her from eating but she is hungry and wants to ear. Allergies Allergy/AdvReac Type Severity Reaction Status Date / Time No Known Allergies Allergy Unverified 03/15/22 13:30 Home Medications Medication Instructions Recorded Confirmed Type lisinopril 5 mg tablet 5 mg PO DAILY #30 tabs 03/15/22 Rx Patient History Social History Smoking Status: Current every day smoker Tobacco Type: Cigarettes Second Hand Exposure: No; Tobacco Cessation Education Requested by Patient: No Hx Alcohol Use: Yes Hx Substance Use: No Preferred Language: Maori Freezer Operator Required: No Beliefs That Will Affect Care: None Current Living Situation: Alone Other Information That Helps Us Care for You: No Feels Safe at Home: Yes Safety Concerns: Feels Safe At This Time Review of Systems Review of Systems: All systems reviewed & are unremarkable except as noted in Subjective Physical Exam Constitutional: + acute distress, + ill appearing, + cac hectic and + frail appearing Eyes: PERRL, conjunctivae normal, anicteric sclerae ENMT: Mouth: + dry oral mucous membranes and + poor dentition Neck: normal visual inspection and trachea midline Thyroid: normal thyroid Respiratory: + respiratory distress, + uses accessory muscles, able to speak in complete sentences and symmetric chest movement Auscultation: + diminished lung sounds Cardiovascular: Rate/Rhythm: regular rate and regular rhythm Heart Sounds: normal S1 and normal S2 Palpation: normal PMI Vessels: radial pulses present Extremities: normal capillary refill Gastrointestinal (Abdomen): Inspection/Auscultation: + scaphoid Percussion/Palpation: + abdomen tender and abdomen soft Musculoskeletal: gen weakness Skin: + turgor decreased, + dry skin and + pal susannah Neurologic: PERRL, EOMI, accommodation nl, no face palsy, no dysarthria Psychiatric: Orientation: alert and oriented x 3 Apperance: appropriately dressed and appeared stated age Eye Contact: + fair eye contact Speech: normal rate/rhythm/volume of speech Affect: + depressed affect Mood: + depressed mood Thought Process: clear/coherent thought process Results & Data Vital Signs (Past 12 Hours) Vital Signs Temp Pulse Pulse Resp BP BP Pulse Ox 02/24/24 07:47 02/24/24 07:23 36.4 C L 65 23 139/74 91 02/24/24 07:19 66 20 90 02/24/24 04:00 61 18 150/75 H 92 02/24/24 02:51 36.4 C L 59 L 20 167/90 H 99 02/24/24 00:30 56 L 136/80 02/24/24 00:28 60 02/24/24 00:23 56 L 136/80 02/24/24 00:07 60 191/96 H 02/23/24 23:47 61 20 92 02/23/24 23:32 36.3 C L 60 18 163/80 H 92 O2 Del Method O2 Flow Rate 02/24/24 07:47 Room Air 02/24/24 07:23 Nasal Cannula 02/24/24 07:19 Room Air 02/24/24 04:00 Nasal Cannula 2 02/24/24 02:51 Nasal Cannula 2.5 02/24/24 00:30 02/24/24 00:28 02/24/24 00:23 02/24/24 00:07 02/23/24 23:47 Nasal Cannula 2 02/23/24 23:32 Nasal Cannula 2.5 Laboratory Results 02/24/24 02/24/24 02/23/24 Range/Units 10:38 06:58 17:08 WBC 23.54 H (4.8-10.8) K/ul RBC 4.16 L (4.20-5.40) M/uL Hgb 12.2 (12.0-16.0) g/dl POC Hgb (12.0-16.0) g/dl Hct 36.3 L (37.0-47.0) % POC Hct (37-47) % MCV 87.3 (80.0-100.0) fL MCH 29.3 (25.0-34.0) pg MCHC 33.6 (32.0-36.0) g/dL RDW Std Deviation 41.4 (36.4-46.3) fL RDW Coeff of Tracey 13.0 (11.5-14.5) % Plt Count 511 H (130-400) K/uL MPV 9.6 (9.4-12.4) fL Immature Gran % (Auto) 0.6 % Neut % (Auto) 93.3 % Lymph % (Auto) 2.3 % Ashe % (Auto) 2.7 % Eos % (Auto) 1.1 % Baso % (Auto) 0.0 % Neut # (Auto) 21.94 H (1.40-6.50) K/uL Lymph # (Auto) 0.55 L (1.20-3.40) K/uL Ashe # (Auto) 0.64 H (0.11-0.59) K/uL Eos # (Auto) 0.27 (0.00-0.50) K/uL Baso # (Auto) 0.01 (0.00-0.20) K/uL Immature Gran # (Auto) 0.13 (0.01-0.20) K/uL Toxic Vacuolation 1+ RBC Morphology Echinocytes 1+ ABG pH 7.45 (7.35-7.45) ABG pCO2 38 (35-46) mmHg ABG pO2 72 L (80-95) mmHg ABG HCO3 26 H (19-24) mmol/L ABG O2 Saturation 95.8 H (90-95) % ABG Base Excess 2.4 H (-9-1.8) mEq/L Alfred Test Pos (Pos) VBG pH (7.36-7.41) VBG pCO2 (38-50) mmHg VBG pO2 mmHg VBG HCO3 mmol/L VBG O2 Saturation % VBG Base Excess mEq/L Oxygen Given 5 L POC Sodium (135-144) mmol/L Sodium 131 L (136-145) mmol/L POC Potassium (3.3-5.0) mmol/L Potassium 3.7 D (3.5-5.1) mmol/L POC Chloride (101-112) mmol/L Chloride 97 L (98-107) mmol/L Carbon Dioxide 25 (21-32) mmol/L POC Total CO2 (24-31) mmol/L Anion Gap 9 (3-11) POC Anion Gap (16-25) mmol/L POC BUN (7-18) mg/dl BUN 31 H (6-23) mg/dl Creatinine 1.19 D (0.6-1.2) mg/dl POC Creatinine (0.6-1.3) mg/dl Est Cr Clr Drug Dosing 30.1 ml/min Est GFR ( Amer) 55.1 ml/min Est GFR (Non-Af Amer) 47.5 ml/min BUN/Creatinine Ratio 26.1 H (10-20) Glucose 137 H (70-99(Fasting)) mg/dl POC Glucose (other) (70-99) mg/dl Estimat Average Glucose mg/dl Hemoglobin A1c (4.5-5.6) % Lactate 1.9 (0.4-2.0) mmol/L Calcium 8.1 L (8.6-10.3) mg/dl POC Ioniz Calcium Nestor (1.12-1.32) mmol/l Phosphorus (2.5-4.9) mg/dl Magnesium (1.7-2.4) mg/dl Total Bilirubin 0.3 (0.2-1.0) mg/dl AST 19 (13-39) U/L ALT 9 (7-52) U/L Alkaline Phosphatase 59 (34-104) U/L Troponin I High Sens (0-14) pg/ml C-Reactive Protein (0-0.5) mg/dl B-Natriuretic Peptide 188 H (0-100) pg/ml Total Protein 6.0 (6.0-8.3) gm/dl Albumin 2.8 L (3.4-5.0) gm/dl Globulin 3.2 (2.5-4.0) gm/dl Albumin/Globulin Ratio 0.9 (0.9-2) Triglycerides (0-150) mg/dl Cholesterol (0-200) mg/dl LDL Cholesterol, Calc mg/dl VLDL Cholesterol, Calc (0-30) mg/dl HDL Cholesterol mg/dl Cholesterol/HDL Ratio (0-5) Lipase (11-82) U/L TSH (0.300-4.500) uIu/ml Urine Color Urine Appearance (Clear) Urine pH (4.5-7.5) Ur Specific Mahomet (1.000-1.030) Urine Protein (Negative) Urine Glucose (UA) (Negative) Urine Ketones (Negative) Urine Blood (Negative) Urine Nitrite (Negative) Urine Bilirubin (Negative) Urine Urobilinogen (Negative) Ur Leukocyte Esterase (Negative) Urine WBC (Auto) (0-5) /hpf Urine RBC (Auto) (0-2) /hpf U Hyaline Cast (Auto) (0-2) /lpf U Epithel Cells (Auto) (0-2) /hpf Urine Bacteria (Auto) (None Seen) Stl C. diff Tox B Gene (Neg) Stl C.difficile Tox A&B (Negative) 02/23/24 02/23/24 02/23/24 Range/Units 16:08 16:06 08:52 WBC (4.8-10.8) K/ul RBC (4.20-5.40) M/uL Hgb (12.0-16.0) g/dl POC Hgb (12.0-16.0) g/dl Hct (37.0-47.0) % POC Hct (37-47) % MCV (80.0-100.0) fL MCH (25.0-34.0) pg MCHC (32.0-36.0) g/dL RDW Std Deviation (36.4-46.3) fL RDW Coeff of Tracey (11.5-14.5) % Plt Count (130-400) K/uL MPV (9.4-12.4) fL Immature Gran % (Auto) % Neut % (Auto) % Lymph % (Auto) % Ashe % (Auto) % Eos % (Auto) % Baso % (Auto) % Neut # (Auto) (1.40-6.50) K/uL Lymph # (Auto) (1.20-3.40) K/uL Ashe # (Auto) (0.11-0.59) K/uL Eos # (Auto) (0.00-0.50) K/uL Baso # (Auto) (0.00-0.20) K/uL Immature Gran # (Auto) (0.01-0.20) K/uL Toxic Vacuolation RBC Morphology Echinocytes ABG pH (7.35-7.45) ABG pCO2 (35-46) mmHg ABG pO2 (80-95) mmHg ABG HCO3 (19-24) mmol/L ABG O2 Saturation (90-95) % ABG Base Excess (-9-1.8) mEq/L Alfred Test (Pos) VBG pH 7.46 H (7.36-7.41) VBG pCO2 36 L (38-50) mmHg VBG pO2 43 mmHg VBG HCO3 26 mmol/L VBG O2 Saturation 73.8 % VBG Base Excess 2.0 mEq/L Oxygen Given POC Sodium (135-144) mmol/L Sodium (136-145) mmol/L POC Potassium (3.3-5.0) mmol/L Potassium (3.5-5.1) mmol/L POC Chloride (101-112) mmol/L Chloride (98-107) mmol/L Carbon Dioxide (21-32) mmol/L POC Total CO2 (24-31) mmol/L Anion Gap (3-11) POC Anion Gap (16-25) mmol/L POC BUN (7-18) mg/dl BUN (6-23) mg/dl Creatinine (0.6-1.2) mg/dl POC Creatinine (0.6-1.3) mg/dl Est Cr Clr Drug Dosing ml/min Est GFR ( Amer) ml/min Est GFR (Non-Af Amer) ml/min BUN/Creatinine Ratio (10-20) Glucose (70-99(Fasting)) mg/dl POC Glucose (other) (70-99) mg/dl Estimat Average Glucose mg/dl Hemoglobin A1c (4.5-5.6) % Lactate Cancelled (0.4-2.0) mmol/L Calcium (8.6-10.3) mg/dl POC Ioniz Calcium Nestor (1.12-1.32) mmol/l Phosphorus (2.5-4.9) mg/dl Magnesium (1.7-2.4) mg/dl Total Bilirubin (0.2-1.0) mg/dl AST (13-39) U/L ALT (7-52) U/L Alkaline Phosphatase (34-104) U/L Troponin I High Sens (0-14) pg/ml C-Reactive Protein (0-0.5) mg/dl B-Natriuretic Peptide (0-100) pg/ml Total Protein (6.0-8.3) gm/dl Albumin (3.4-5.0) gm/dl Globulin (2.5-4.0) gm/dl Albumin/Globulin Ratio (0.9-2) Triglycerides (0-150) mg/dl Cholesterol (0-200) mg/dl LDL Cholesterol, Calc mg/dl VLDL Cholesterol, Calc (0-30) mg/dl HDL Cholesterol mg/dl Cholesterol/HDL Ratio (0-5) Lipase (11-82) U/L TSH (0.300-4.500) uIu/ml Urine Color Urine Appearance (Clear) Urine pH (4.5-7.5) Ur Specific Mahomet (1.000-1.030) Urine Protein (Negative) Urine Glucose (UA) (Negative) Urine Ketones (Negative) Urine Blood (Negative) Urine Nitrite (Negative) Urine Bilirubin (Negative) Urine Urobilinogen (Negative) Ur Leukocyte Esterase (Negative) Urine WBC (Auto) (0-5) /hpf Urine RBC (Auto) (0-2) /hpf U Hyaline Cast (Auto) (0-2) /lpf U Epithel Cells (Auto) (0-2) /hpf Urine Bacteria (Auto) (None Seen) Stl C. diff Tox B Gene Positive Cdiff Gene H (Neg) Stl C.difficile Tox A&B Negative Cdiff Toxin (Negative) 02/23/24 02/22/24 02/21/24 Range/Units 07:12 07:05 23:01 WBC 18.64 H 17.89 H 20.98 H (4.8-10.8) K/ul RBC 4.01 L 3.77 L 4.27 (4.20-5.40) M/uL Hgb 11.8 L 10.9 L 12.5 (12.0-16.0) g/dl POC Hgb (12.0-16.0) g/dl Hct 34.6 L 33.0 L 38.0 (37.0-47.0) % POC Hct (37-47) % MCV 86.3 87.5 89.0 (80.0-100.0) fL MCH 29.4 28.9 29.3 (25.0-34.0) pg MCHC 34.1 33.0 32.9 (32.0-36.0) g/dL RDW Std Deviation 39.0 40.6 41.1 (36.4-46.3) fL RDW Coeff of Tracey 12.3 12.7 12.7 (11.5-14.5) % Plt Count 448 H 414 H 498 H (130-400) K/uL MPV 9.7 8.8 L 8.9 L (9.4-12.4) fL Immature Gran % (Auto) 1.1 0.3 0.3 % Neut % (Auto) 88.8 87.6 88.8 % Lymph % (Auto) 4.5 4.0 3.5 % Ashe % (Auto) 5.2 7.7 6.6 % Eos % (Auto) 0.1 0.1 0.5 % Baso % (Auto) 0.3 0.3 0.3 % Neut # (Auto) 16.57 H 15.66 H 18.63 H (1.40-6.50) K/uL Lymph # (Auto) 0.83 L 0.72 L 0.73 L (1.20-3.40) K/uL Ashe # (Auto) 0.96 H 1.38 H 1.38 H (0.11-0.59) K/uL Eos # (Auto) 0.02 0.01 0.11 (0.00-0.50) K/uL Baso # (Auto) 0.06 0.06 0.06 (0.00-0.20) K/uL Immature Gran # (Auto) 0.20 0.06 0.07 (0.01-0.20) K/uL Toxic Vacuolation RBC Morphology Echinocytes ABG pH (7.35-7.45) ABG pCO2 (35-46) mmHg ABG pO2 (80-95) mmHg ABG HCO3 (19-24) mmol/L ABG O2 Saturation (90-95) % ABG Base Excess (-9-1.8) mEq/L Alfred Test (Pos) VBG pH (7.36-7.41) VBG pCO2 (38-50) mmHg VBG pO2 mmHg VBG HCO3 mmol/L VBG O2 Saturation % VBG Base Excess mEq/L Oxygen Given POC Sodium (135-144) mmol/L Sodium 131 L 135 L 136 (136-145) mmol/L POC Potassium (3.3-5.0) mmol/L Potassium 2.9 L 3.5 3.6 (3.5-5.1) mmol/L POC Chloride (101-112) mmol/L Chloride 98 101 100 (98-107) mmol/L Carbon Dioxide 26 25 26 (21-32) mmol/L POC Total CO2 (24-31) mmol/L Anion Gap 7 9 10 (3-11) POC Anion Gap (16-25) mmol/L POC BUN (7-18) mg/dl BUN 19 17 15 (6-23) mg/dl Creatinine 0.82 0.79 0.70 (0.6-1.2) mg/dl POC Creatinine (0.6-1.3) mg/dl Est Cr Clr Drug Dosing 43.7 45.3 51.2 ml/min Est GFR ( Amer) 86.4 90.4 104.6 ml/min Est GFR (Non-Af Amer) 74.6 78.0 90.3 ml/min BUN/Creatinine Ratio 23.2 H 21.5 H 21.4 H (10-20) Glucose 116 H 98 96 (70-99(Fasting)) mg/dl POC Glucose (other) (70-99) mg/dl Estimat Average Glucose 123 mg/dl Hemoglobin A1c 5.9 H (4.5-5.6) % Lactate 1.7 (0.4-2.0) mmol/L Calcium 8.0 L 8.2 L 8.6 (8.6-10.3) mg/dl POC Ioniz Calcium Nestor (1.12-1.32) mmol/l Phosphorus 3.5 (2.5-4.9) mg/dl Magnesium 2.3 1.1 L (1.7-2.4) mg/dl Total Bilirubin 0.4 0.6 0.5 (0.2-1.0) mg/dl AST 18 22 25 (13-39) U/L ALT 9 12 15 (7-52) U/L Alkaline Phosphatase 59 60 76 (34-104) U/L Troponin I High Sens (0-14) pg/ml C-Reactive Protein 32.07 H (0-0.5) mg/dl B-Natriuretic Peptide (0-100) pg/ml Total Protein 5.7 L 6.2 7.4 (6.0-8.3) gm/dl Albumin 2.7 L 3.0 L 3.6 (3.4-5.0) gm/dl Globulin 3.0 3.2 3.8 (2.5-4.0) gm/dl Albumin/Globulin Ratio 0.9 0.9 0.9 (0.9-2) Triglycerides 51 (0-150) mg/dl Cholesterol 114 (0-200) mg/dl LDL Cholesterol, Calc 57 mg/dl VLDL Cholesterol, Calc 10 (0-30) mg/dl HDL Cholesterol 47 mg/dl Cholesterol/HDL Ratio 2.4 (0-5) Lipase 95 H (11-82) U/L TSH 0.562 (0.300-4.500) uIu/ml Urine Color Urine Appearance (Clear) Urine pH (4.5-7.5) Ur Specific Mahomet (1.000-1.030) Urine Protein (Negative) Urine Glucose (UA) (Negative) Urine Ketones (Negative) Urine Blood (Negative) Urine Nitrite (Negative) Urine Bilirubin (Negative) Urine Urobilinogen (Negative) Ur Leukocyte Esterase (Negative) Urine WBC (Auto) (0-5) /hpf Urine RBC (Auto) (0-2) /hpf U Hyaline Cast (Auto) (0-2) /lpf U Epithel Cells (Auto) (0-2) /hpf Urine Bacteria (Auto) (None Seen) Stl C. diff Tox B Gene (Neg) Stl C.difficile Tox A&B (Negative) 02/21/24 02/21/24 02/21/24 Range/Units 15:43 15:42 12:20 WBC (4.8-10.8) K/ul RBC (4.20-5.40) M/uL Hgb (12.0-16.0) g/dl POC Hgb (12.0-16.0) g/dl Hct (37.0-47.0) % POC Hct (37-47) % MCV (80.0-100.0) fL MCH (25.0-34.0) pg MCHC (32.0-36.0) g/dL RDW Std Deviation (36.4-46.3) fL RDW Coeff of Tracey (11.5-14.5) % Plt Count (130-400) K/uL MPV (9.4-12.4) fL Immature Gran % (Auto) % Neut % (Auto) % Lymph % (Auto) % Ashe % (Auto) % Eos % (Auto) % Baso % (Auto) % Neut # (Auto) (1.40-6.50) K/uL Lymph # (Auto) (1.20-3.40) K/uL Ashe # (Auto) (0.11-0.59) K/uL Eos # (Auto) (0.00-0.50) K/uL Baso # (Auto) (0.00-0.20) K/uL Immature Gran # (Auto) (0.01-0.20) K/uL Toxic Vacuolation RBC Morphology Echinocytes ABG pH (7.35-7.45) ABG pCO2 (35-46) mmHg ABG pO2 (80-95) mmHg ABG HCO3 (19-24) mmol/L ABG O2 Saturation (90-95) % ABG Base Excess (-9-1.8) mEq/L Alfred Test (Pos) VBG pH (7.36-7.41) VBG pCO2 (38-50) mmHg VBG pO2 mmHg VBG HCO3 mmol/L VBG O2 Saturation % VBG Base Excess mEq/L Oxygen Given POC Sodium (135-144) mmol/L Sodium (136-145) mmol/L POC Potassium (3.3-5.0) mmol/L Potassium (3.5-5.1) mmol/L POC Chloride (101-112) mmol/L Chloride (98-107) mmol/L Carbon Dioxide (21-32) mmol/L POC Total CO2 (24-31) mmol/L Anion Gap (3-11) POC Anion Gap (16-25) mmol/L POC BUN (7-18) mg/dl BUN (6-23) mg/dl Creatinine (0.6-1.2) mg/dl POC Creatinine (0.6-1.3) mg/dl Est Cr Clr Drug Dosing ml/min Est GFR ( Amer) ml/min Est GFR (Non-Af Amer) ml/min BUN/Creatinine Ratio (10-20) Glucose (70-99(Fasting)) mg/dl POC Glucose (other) (70-99) mg/dl Estimat Average Glucose mg/dl Hemoglobin A1c (4.5-5.6) % Lactate 2.0 1.9 (0.4-2.0) mmol/L Calcium (8.6-10.3) mg/dl POC Ioniz Calcium Nestor (1.12-1.32) mmol/l Phosphorus (2.5-4.9) mg/dl Magnesium (1.7-2.4) mg/dl Total Bilirubin (0.2-1.0) mg/dl AST (13-39) U/L ALT (7-52) U/L Alkaline Phosphatase (34-104) U/L Troponin I High Sens 624.6 H* D (0-14) pg/ml C-Reactive Protein (0-0.5) mg/dl B-Natriuretic Peptide (0-100) pg/ml Total Protein (6.0-8.3) gm/dl Albumin (3.4-5.0) gm/dl Globulin (2.5-4.0) gm/dl Albumin/Globulin Ratio (0.9-2) Triglycerides (0-150) mg/dl Cholesterol (0-200) mg/dl LDL Cholesterol, Calc mg/dl VLDL Cholesterol, Calc (0-30) mg/dl HDL Cholesterol mg/dl Cholesterol/HDL Ratio (0-5) Lipase (11-82) U/L TSH (0.300-4.500) uIu/ml Urine Color Urine Appearance (Clear) Urine pH (4.5-7.5) Ur Specific Mahomet (1.000-1.030) Urine Protein (Negative) Urine Glucose (UA) (Negative) Urine Ketones (Negative) Urine Blood (Negative) Urine Nitrite (Negative) Urine Bilirubin (Negative) Urine Urobilinogen (Negative) Ur Leukocyte Esterase (Negative) Urine WBC (Auto) (0-5) /hpf Urine RBC (Auto) (0-2) /hpf U Hyaline Cast (Auto) (0-2) /lpf U Epithel Cells (Auto) (0-2) /hpf Urine Bacteria (Auto) (None Seen) Stl C. diff Tox B Gene (Neg) Stl C.difficile Tox A&B (Negative) 02/21/24 02/21/24 02/21/24 Range/Units 11:20 10:57 10:39 WBC 20.96 H (4.8-10.8) K/ul RBC 4.76 (4.20-5.40) M/uL Hgb 14.0 (12.0-16.0) g/dl POC Hgb 13.6 (12.0-16.0) g/dl Hct 41.5 (37.0-47.0) % POC Hct 40 (37-47) % MCV 87.2 (80.0-100.0) fL MCH 29.4 (25.0-34.0) pg MCHC 33.7 (32.0-36.0) g/dL RDW Std Deviation 39.7 (36.4-46.3) fL RDW Coeff of Tracey 12.4 (11.5-14.5) % Plt Count 572 H (130-400) K/uL MPV 9.0 L (9.4-12.4) fL Immature Gran % (Auto) 0.5 % Neut % (Auto) 90.7 % Lymph % (Auto) 4.2 % Ashe % (Auto) 4.3 % Eos % (Auto) 0.0 % Baso % (Auto) 0.3 % Neut # (Auto) 19.01 H (1.40-6.50) K/uL Lymph # (Auto) 0.87 L (1.20-3.40) K/uL Ashe # (Auto) 0.91 H (0.11-0.59) K/uL Eos # (Auto) 0.00 (0.00-0.50) K/uL Baso # (Auto) 0.06 (0.00-0.20) K/uL Immature Gran # (Auto) 0.11 (0.01-0.20) K/uL Toxic Vacuolation RBC Morphology Unremarkable Echinocytes ABG pH (7.35-7.45) ABG pCO2 (35-46) mmHg ABG pO2 (80-95) mmHg ABG HCO3 (19-24) mmol/L ABG O2 Saturation (90-95) % ABG Base Excess (-9-1.8) mEq/L Alfred Test (Pos) VBG pH (7.36-7.41) VBG pCO2 (38-50) mmHg VBG pO2 mmHg VBG HCO3 mmol/L VBG O2 Saturation % VBG Base Excess mEq/L Oxygen Given POC Sodium 138 (135-144) mmol/L Sodium 137 (136-145) mmol/L POC Potassium 3.5 (3.3-5.0) mmol/L Potassium 3.7 (3.5-5.1) mmol/L POC Chloride 100 L (101-112) mmol/L Chloride 98 (98-107) mmol/L Carbon Dioxide 27 (21-32) mmol/L POC Total CO2 28 (24-31) mmol/L Anion Gap 12 H (3-11) POC Anion Gap 15.0 L (16-25) mmol/L POC BUN 16 (7-18) mg/dl BUN 16 (6-23) mg/dl Creatinine 0.82 (0.6-1.2) mg/dl POC Creatinine 0.8 (0.6-1.3) mg/dl Est Cr Clr Drug Dosing 43.6 ml/min Est GFR ( Amer) 86.4 ml/min Est GFR (Non-Af Amer) 74.6 ml/min BUN/Creatinine Ratio 19.5 (10-20) Glucose 131 H (70-99(Fasting)) mg/dl POC Glucose (other) 131 H (70-99) mg/dl Estimat Average Glucose mg/dl Hemoglobin A1c (4.5-5.6) % Lactate (0.4-2.0) mmol/L Calcium 9.5 (8.6-10.3) mg/dl POC Ioniz Calcium Nestor 1.08 L (1.12-1.32) mmol/l Phosphorus (2.5-4.9) mg/dl Magnesium (1.7-2.4) mg/dl Total Bilirubin 0.5 (0.2-1.0) mg/dl AST 19 (13-39) U/L ALT 11 (7-52) U/L Alkaline Phosphatase 94 (34-104) U/L Troponin I High Sens 781.7 H* (0-14) pg/ml C-Reactive Protein (0-0.5) mg/dl B-Natriuretic Peptide (0-100) pg/ml Total Protein 8.8 H (6.0-8.3) gm/dl Albumin 4.3 (3.4-5.0) gm/dl Globulin 4.5 H (2.5-4.0) gm/dl Albumin/Globulin Ratio 1.0 (0.9-2) Triglycerides (0-150) mg/dl Cholesterol (0-200) mg/dl LDL Cholesterol, Calc mg/dl VLDL Cholesterol, Calc (0-30) mg/dl HDL Cholesterol mg/dl Cholesterol/HDL Ratio (0-5) Lipase 15 (11-82) U/L TSH (0.300-4.500) uIu/ml Urine Color Yellow Urine Appearance Cloudy A (Clear) Urine pH 6.5 (4.5-7.5) Ur Specific [place] 1.018 (1.000-1.030) Urine Protein 2+ H (Negative) Urine Glucose (UA) Negative (Negative) Urine Ketones 2+ H (Negative) Urine Blood Trace H (Negative) Urine Nitrite Negative (Negative) Urine Bilirubin Negative (Negative) Urine Urobilinogen Negative (Negative) Ur Leukocyte Esterase 3+ H (Negative) Urine WBC (Auto) 21-50 H (0-5) /hpf Urine RBC (Auto) 0-2 (0-2) /hpf U Hyaline Cast (Auto) 3-5 H (0-2) /lpf U Epithel Cells (Auto) 3-5 H (0-2) /hpf Urine Bacteria (Auto) 2+ H (None Seen) Stl C. diff Tox B Gene (Neg) Stl C.difficile Tox A&B (Negative) Diagnostic Findings Abdomen/Pelvis CT 02/21/24 10:[address] WITH IV CONTRAST CT DOSE: 261.89 mGy.cm HISTORY: Generalized abdominal pain. TECHNIQUE: Multiaxial CT images of the abdomen and pelvis were performed following the use of intravenous contrast. A dose lowering technique was utilized adhering to the principles of ALARA. COMPARISON STUDY: None. FINDINGS: Emphysema is noted at the lung bases. No pneumoperitoneum. No pneumatosis. No acute fractures identified. Moderate levoscoliosis of the lumbar spine. Mild superior endplate compression deformities at L1 and L2. These are technically age indeterminate but likely chronic. No associated retropulsion. There are are a few subcentimeter hypodense lesions within the liver. These are technically too small to characterize but statistically represent cysts. These measure up to 5 mm. The common bile duct is distended up to 9 mm. The main pancreatic duct is also mildly distended measuring up to 4 mm. No obstructing stones or lesions identified. There is mild intrahepatic bile duct dilatation. The gallbladder is contracted but appears unremarkable. The pancreas enhances normally. The spleen and adrenal glands are unremarkable. There is a 12 mm cyst within the mid right kidney. Mild multifocal scarring within the right kidney. No hydronephrosis. The main portal vein is patent. Heavily calcified plaque within the normal caliber abdominal aorta. There is occlusion of the right iliac arteries which are small in caliber suggestive chronic occlusion. There is reconstitution of flow at the right common femoral artery due to a collateral from the inferior epigastric. There is also occlusion of the bilateral superficial femoral arteries which are also small caliber and therefore likely chronic. 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 No retroperitoneal or pelvic lymphadenopathy. The bladder is distended. The uterus and bilateral adnexa are unremarkable. There is an 11 mm right ovarian cyst. A few colonic diverticula. No evidence for acute diverticulitis. No bowel wall thickening or obstruction. Normal appendix. Fluid- filled loop of small bowel within the left lower quadrant is not dilated by CT criteria. Therefore, this is unlikely to represent an obstruction. Mildly distended and fluid-filled stomach. No definite transition point.. IMPRESSION: 1. No bowel wall thickening or obstruction. 2. Mildly distended and fluid-filled stomach. 3. No hydronephrosis. 4. Normal appendix. 5. Mildly distended common bile duct and main pancreatic duct with mild intrahepatic bile duct dilatation. No obstructing lesions or stones identified. Recommend correlation with LFTs to exclude an occult obstructing process near the ampulla. Follow-up nonemergent ERCP should also be considered for further evaluation. 6. Distended bladder. 7. 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 8. Mild superior endplate compression deformities at L1 and L2. This is likely chronic. 9. Additional findings as described above. ACT 112: Negative or not required by law. Electronically signed by: Kingsley Bruner M.D. 02/21/2024 11:46 AM Chest X-Ray 02/23/24 16:47 SINGLE VIEW CHEST CLINICAL HISTORY: Dyspnea FINDINGS: An AP, portable, upright chest radiograph is compared to study dated 03/15/2022. Correlation is made with abdominal CT dated 02/21/2024. The heart is top normal for projection noting atherosclerotic calcification of the thoracic aorta. The pulmonary vasculature is not congested. Emphysema and chronic interstitial thickening is similar to previous. A small right pleural effusion is suspected and there are airspace opacities at the right lung base. No pneumothorax is seen. The skeletal structures are osteopenic. The bony thorax is grossly intact. There is moderate S-shaped thoracolumbar scoliosis. IMPRESSION: 1. Emphysema. 2. There is a small right pleural effusion with right basilar opacities. This could represent atelectasis versus an infectious/inflammatory pneumonitis. Clinical correlation will be required and radiographic follow-up to resolution is recommended. ACT 112: Negative or not required by law. Electronically signed by: Minesh Hylton M.D. 02/23/2024 5:07 PM Chest CTA 02/23/24 17:25 CT ANGIOGRAM OF THE CHEST CLINICAL HISTORY: Hypoxia COMPARISON STUDY: Chest x-ray dated 03/04/2024. TECHNIQUE: Following the IV administration of 120 cc of Optiray 320, CT angiogram of the chest was performed from the upper abdomen to the thoracic inlet utilizing the pulmonary embolus protocol. Images are reviewed in the axial, sagittal, and coronal planes. 3-D MIPS images are created and assessed. IV contrast was administered without complication. A dose lowering technique was utilized adhering to the principles of ALARA. CT DOSE: 282.62 mGy.cm FINDINGS: Thyroid: Imaged portions of the thyroid gland are normal in size and attenuation. Thoracic aorta: There is atherosclerotic calcification of the thoracic aorta, which is normal in caliber and demonstrates standard 3-vessel arch anatomy. No dissection is seen. Pulmonary vasculature: The pulmonary trunk is normal in caliber. There are no filling defects identified in main, lobar, or segmental pulmonary branches to suggest pulmonary embolus. Heart: The heart is mildly enlarged and without pericardial effusion. The coronary arteries are densely calcified. Lungs and pleural spaces: There is moderate to advanced emphysema. There are small right and trace left pleural effusions with dependent consolidation. There is a 3.7 x 2.9 x 1.6 cm spiculated mass at the left apex seen on image #152. This approaches the left suprahilar region. The trachea is clear. Secretions/debris is seen within the mainstem bronchi and lower lobe airways bilaterally. A 5 mm left upper lobe pulmonary nodule is seen on image #125. A 9 mm irregular opacity in the right lower lobe is seen on image #134. Mediastinum: Mildly enlarged prevascular nodes measure up to 10 mm in short axis. Naomie: Mildly enlarged left hilar nodes measure up to 11 mm short axis. No right hilar adenopathy is seen. Axillae: There is no axillary lymphadenopathy. Upper abdomen: The esophagus is distended and patulous, and filled with fluid level of the thoracic inlet. There is a moderate hiatal hernia. The esophagus appears diffusely thick walled. There is trace perihepatic ascites. No adrenal lesion is seen. Skeletal structures: The skeletal structures are osteopenic. There is degenerative change and S-shaped thoracal lumbar scoliosis seen in the spine. Arthritic change is noted in the shoulders. No lytic or blastic bony lesions are seen. IMPRESSION: 1. There is no evidence of pulmonary embolus in the main, lobar, or segmental p ulmonary arteries. 2. Cardiomegaly and emphysema. 3. There is a 3.7 cm spiculated mass at the left apex. A bronchogenic neoplasm is the diagnosis of exclusion. Pulmonology evaluation is advised. 4. Right larger than left pleural effusions with dependent consolidation. This could represent atelectasis versus a pneumonitis. Correlate clinically. 5. The esophagus appears diffusely thick-walled, and is filled with fluid to the level of the thoracic inlet. Correlate clinically for evidence of esophagitis. Note that this places the patient at risk for aspiration, and there is fluid/debris within the lower lobe airways bilaterally. 6. Hiatal hernia. 7. Mildly enlarged left hilar and prevascular nodes are nonspecific. Metastatic alicia involvement is not excluded. 8. There are additional nodular opacities in the left upper lobe and in the right lower lobe. Attention at follow-up will be required. 9. Trace perihepatic ascites. 10. Additional findings as above. ACT 112: Positive. There are findings on this exam that require communication between the performing entity and the patient following Patient Test Result Information Act ([place] Act 112) guidelines. Electronically signed by: Minesh Hylton M.D. 02/23/2024 7:19 PM PG Care Time/CCT Total # of Minutes Spent Total Time Spent with Patient: Total time spent is greater than 50% in coordination of care (as documented) at patient's floor/unit and/or counseling patient: I spent 95 minutes overall addressing this case: 15 min in medical data review/discussion with referring provider(s) and/or preparation for the visit 15 min in direct interaction with the patient/exam 30 min in Advance Care Planning/Goals of Care discussions as detailed above in note (must be >16min) 15 min in subsequent review and synthesis of assessment and plan 20 min communicating with other providers regarding the patient's case: nursing, care mgt, primary team Advanced Care Planning 26804 Advanced Care Planning 30 [place] [address] IN/OBS CONSULT LVL 4,60M (25 - SIGNIFICANT, SEPARATELY IDENTIFIABLE ) Patient Type New Medical Decision Making High Complexity Diagnoses Cancer related pain G89.3 Dyspnea and respiratory abnormalities R06.00; R06.89 Palliative care by specialist Z51.5 Advanced care planning/counseling discussion Z71.89 Encounter for hospice care discussion Z71.89 Additional Codes Advanced Care Planning - 22406 Advanced Care Planning 30 Min: 58174 Advanced Care Planning 30 Min ([id number])
--- NOTE | 2024-02-24 10:31 | Pulmonary Consultation ---
Date of Consultation February 24, 2024 Assessment & Plan (1) C. difficile diarrhea: (2) COPD with emphysema: (3) Acute respiratory failure with hypoxia: (4) Pulmonary mass: (5) Current smoker: Plan CTA chest 02/23/2024 personally reviewed: Centrilobular emphysema appreciated bilaterally Left upper lobe 2.9 cm x 1.6 cm x 3.7 cm mass Bilateral pleural effusion R>L Dilated esophagus Minimal left hilar lymphadenopathy -- Acute hypoxic respiratory failure Patient does have COPD which is not treated, does not seem to be in exacerbation Bilateral pleural effusion with elevated BNP --> CHF is likely playing a role BNP 188 --Left upper lobe pulmonary mass Seems to be present even in 2021 Possibility of malignancy is high, would recommend bronchoscopy but patient does not want any aggressive treatment -- History of throat cancer She refused any treatment for that -- COPD with emphysema Not on any inhalers at home. I do not think patient is COPD exacerbation -- Dextroscoliosis Plan: Follow-up BNP, follow-up 2D echo Continue with diuretics to keep the patient negative balance Continue with oxygen to keep O2 saturation between 90-92% Start the patient on nebulized bronchodilator regimen along with Incruse Please note the above document was generated using voice recognition software. It may contain grammatical, syntax or spelling errors.Any formal questions or concerns about the content, text or information contained within the body of this dictation should be directly addressed to the provider for clarification. History of Present Illness Attending Physician: Ezekiel Molina DO History of Present Illness 68-year-old female was admitted to the hospital because of abdominal pain Past medical history: Recently diagnosed throat cancer, patient refused any treatment Pulmonary were consulted for hypoxia At the time of examination patient was saturating 86-87 on 4 L, I went up to 5 L She did complain of shortness of breath. She is not sure if it is getting worse since he came to the hospital Still complaining of diffuse abdominal pain. Denies any nausea vomiting right now. Usually not on any oxygen at home Does smoke on a regular basis. Occasional cough with clear phlegm. No hemoptysis Denies any fever or chills right now Social history:> 50 pack-year smoking history, currently smoking half a pack a day. 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 Beliefs That Will Affect Care: None Current Living Situation: Alone Other Information That Helps Us Care for You: No Feels Safe at Home: Yes Safety Concerns: Feels Safe At This Time Review of Systems 2 Review of Systems: All systems reviewed & are unremarkable except as noted in HPI & below Physical Exam 2 Physical Exam: Constitutional: No acute distress HEENT: EOMI, PERRLA Respiratory system: Decreased air entry bilaterally, no wheeze, no rhonchi, mild crackles bilateral lower lobes CVS: S1-S2 positive, no murmurs or gallops Abdomen: Soft, diffuse abdominal tenderness, no rebound, positive bowel sounds Extremities: +2 pulses bilaterally radialis/ dorsalis pedis, no cyanosis, no edema Neuro: Awake alert oriented x3 Psych: Flat mood and affect G/U: Positive Estevez Skin: no rashes, warm and dry Lymphatic: no cervical or axillary lymphadenopathy Results & Data Results & Data Vital Signs (Past 12 Hours) Vital Signs Temp Pulse Pulse Resp BP BP Pulse Ox 02/24/24 07:47 02/24/24 07:23 36.4 C L 65 23 139/74 91 02/24/24 07:19 66 20 90 02/24/24 04:00 61 18 150/75 H 92 02/24/24 02:51 36.4 C L 59 L 20 167/90 H 99 02/24/24 00:30 56 L 136/80 02/24/24 00:28 60 02/24/24 00:23 56 L 136/80 02/24/24 00:07 60 191/96 H 02/23/24 23:47 61 20 92 02/23/24 23:32 36.3 C L 60 18 163/80 H 92 O2 Del Method O2 Flow Rate 02/24/24 07:47 Room Air 02/24/24 07:23 Nasal Cannula 02/24/24 07:19 Room Air 02/24/24 04:00 Nasal Cannula 2 02/24/24 02:51 Nasal Cannula 2.5 02/24/24 00:30 02/24/24 00:28 02/24/24 00:23 02/24/24 00:07 02/23/24 23:47 Nasal Cannula 2 02/23/24 23:32 Nasal Cannula 2.5 Laboratory Results 02/24/24 06:58 02/24/24 06:58 PG Care Time/CCT Total # of Minutes Spent Total Time Spent with Patient: Total time spent is greater than 50% in coordination of care (as documented) at patient's floor/unit and/or counseling patient: Coding Level of Care Code 83158 INT INP/OBS CARE 375MIN Diagnoses C. difficile diarrhea A04.72 COPD with emphysema J43.9 Acute respiratory failure with hypoxia J96.01 Pulmonary mass R91.8 Current smoker F17.200
--- NOTE | 2024-02-24 10:53 | Electrocardiogram Report ---
Test Reason : Blood Pressure : / mmHG Vent. Rate : 084 BPM Atrial Rate : 117 BPM P-R Int : 130 ms QRS Dur : 078 ms QT Int : 462 ms P-R-T Axes : 067 038 081 degrees QTc Int : 545 ms Poor data quality, interpretation may be adversely affected Sinus tachycardia with Premature supraventricular complexes Prolonged QT Abnormal ECG When compared with ECG of 21-FEB-2024 10:13, Premature supraventricular complexes are now Present Criteria for Anterior infarct are no longer Present ST no longer depressed in Inferior leads Non-specific change in ST segment in Lateral leads Confirmed by Jeremy Albert ([id number]) on 02/24/2024 10:52:59 AM Referred By: REFERRED SELF Confirmed By:Ray Albert
[2024-02-24] MEDS ORDERED: LORazepam 1 MG in SYRINGE 0.25 ML IV PRN (11:27)
[2024-02-24] MEDS: SODIUM CHLORIDE 0.9% 1,000 ML IV SCH (12:26)
[2024-02-24] MEDS: MoRPHine SULFATE 10 MG/0.5 ML UDP PO PRN (13:54)
[2024-02-24] MEDS ORDERED: ALBUT/IPRATROP 3MG/0.5MG NEB 3 ML VIAL NEB PRN (14:52)
[2024-02-24] MEDS ORDERED: HYDROmorphone INJ 0.5 MG/0.5 ML SYR IV PRN (15:13)
[2024-02-24] MEDS: UMECLIDINIUM BROMIDE 62.5MCG/BLISTER 7 PUFFS/INHALER INH SCH (15:50)
[2024-02-24] MEDS: HYDROmorphone INJ 0.5 MG/0.5 ML SYR IV PRN (15:56)
[2024-02-24] MEDS: BUDESONIDE 0.25 MG/2 ML VIAL (PULMICORT) NEB SCH (22:07)
[2024-02-24] MEDS: FORMOTEROL 20 MCG/2 ML VIAL INH SCH (22:08)
[2024-02-24] MEDS: LORazepam 1 MG in SYRINGE 0.5 ML IV PRN (22:18)
--- NOTE | 2024-02-25 08:08 | Pulmonology Progress Note ---
Date of Service February 25, 2024 Assessment & Plan (1) C. difficile diarrhea: (2) COPD with emphysema: (3) Acute respiratory failure with hypoxia: (4) Pulmonary mass: (5) Current smoker: Plan CTA chest 02/23/2024 personally reviewed: Centrilobular emphysema appreciated bilaterally Left upper lobe 2.9 cm x 1.6 cm x 3.7 cm mass Bilateral pleural effusion R>L Dilated esophagus Minimal left hilar lymphadenopathy 2D echo 02/22/2024: Grade 1 diastolic dysfunction, EF 60-55%, RV normal in size and function -- Acute hypoxic respiratory failure Patient does have COPD which is not treated, does not seem to be in exacerbation Bilateral pleural effusion with elevated BNP --> CHF is likely playing a role BNP 188 --Left upper lobe pulmonary mass Seems to be present even in 2021 Possibility of malignancy is high, would recommend bronchoscopy but patient does not want any aggressive treatment -- History of throat cancer She refused any treatment for that -- COPD with emphysema Not on any inhalers at home. I do not think patient is COPD exacerbation -- Dextroscoliosis Plan: Patient is chose to go the palliative care route Keep the patient comfortable No further recommendation from pulmonary perspective, will sign off Please call directly with any questions Please note the above document was generated using voice recognition software. It may contain grammatical, syntax or spelling errors.Any formal questions or concerns about the content, text or information contained within the body of this dictation should be directly addressed to the provider for clarification. Admission and Anticipated Discharge Date Admission Date: February 21, 2024 Subjective Patient seen and examined at bedside. No acute distress Patient was sleeping at the time of examination She has chosen the [facility] for palliative care Did not seem to be in any respiratory distress Review of Systems 2 Review of Systems: All systems reviewed & are unremarkable except as noted in Subjective Physical Exam 2 Physical Exam: Constitutional: No acute distress HEENT: EOMI, PERRLA Respiratory system: Decreased air entry bilaterally, no wheeze, no rhonchi, mild crackles bilateral lower lobes CVS: S1-S2 positive, no murmurs or gallops Abdomen: Soft, diffuse abdominal tenderness, no rebound, positive bowel sounds Extremities: +2 pulses bilaterally radialis/ dorsalis pedis, no cyanosis, no edema Neuro: Awake alert oriented x3 Psych: Flat mood and affect G/U: Positive Estevez Skin: no rashes, warm and dry Lymphatic: no cervical or axillary lymphadenopathy Results & Data Results & Data Vital Signs (Past 12 Hours) Vital Signs O2 Del Method O2 Flow Rate 02/24/24 20:09 Nasal Cannula 4 Laboratory Results 02/24/24 06:58 02/24/24 06:58 PG Care Time/CCT Total # of Minutes Spent Total Time Spent with Patient: Total time spent is greater than 50% in coordination of care (as documented) at patient's floor/unit and/or counseling patient: Coding Level of Care Code 74873 SUB INP/OBS CARE 2/35MIN Diagnoses C. difficile diarrhea A04.72 COPD with emphysema J43.9 Acute respiratory failure with hypoxia J96.01 Pulmonary mass R91.8 Current smoker F17.200
--- NOTE | 2024-02-25 09:12 | Hospitalist Progress Note ---
Date of Service February 25, 2024 Assessment & Plan (1) Abdominal pain: Plan: 68 F presenting with diffuse abdominal pain found to have significant leukocytosis and elevated troponin on evaluation. Now admitted for further diagnostic assessment and pain management. After discussion with palliative med (02/23), pt has decided to proceed with comfort care while hospitalized with plan to discharge home with hospice. As pt's status stands today, she is not stable for discharge with hospice. Will continue FIELD PROFESSIONAL measures while hospitalized and if pt stabilizes, will discharge with hospice at that time. Abdominal pain with leukocytosis - Etiology remains unclear. WBC 20.96, plt-572, 2+ proteinuria, 2+ ketonuria, 3+ LE on admission. LFTs normal. 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 difficile, CRP ordered: C. difficile gene positive, toxin negative, CRP-32 - do not suspect active c diff infection Hypertensive emergency resolved - multiple SBP readings >210 over DBP readings >110 on admission - started on nicardipine drip to bring SBP <180; s/p IV labetalol 10 mg x 2 doses- was switched successfully to PO meds which had pt under adequate control - will d/c antihypertensives as transitioned to comfort care Elevated troponin resolved - 781.7 on admission. Repeat 624.6. Patient asymptomatic. - Most likely demand ischemia given evidence of severe intra-abdominal vascular disease - Lipid profile normal, DtlD7u-3.9% - discontinue atorvastatin 80 mg daily and aspirin 81 mg daily Dysphagia - discovered postadmission, as patient unable to tolerate PO administration - pt does have hx of esophageal cancer for which she has not received tx and does not wish to begin tx; CTA revealed a new left lung mass which may be indicative of (most likely) metastasis vs. new primary malignancy - speech/swallow eval recommended initiation clear liquid diet; may advance diet as pt wishes Code: DNR/DNI Dispo: home with hospice if stable FEN/GI: comfort feeds as desired (2) Elevated troponin: (3) Hypertensive emergency: (4) DVT prophylaxis: (5) Dysphagia: (6) Diarrhea: Admission and Anticipated Discharge Date Admission Date: February 21, 2024 Supervising Physician Co-Signing Physician Notes I also saw the patient with the resident physician and confirmed burgess portions of the clinical history and physical exam. I agree with the impression and plan as noted in the resident documentation above. Patient is on comfort care only. Upon my exam, the patient is sleeping; she does not awaken to loud voice. No contacts are listed for her; the nurse was able to converse with her later in the morning and ask if there is any when she would like to be notified or have at bedside and she declined. Seems comfortable current with current medications Subjective Pt resting comfortably in bed this AM. Hard to awake. Opens her eyes to my voice, but does not engage in conversation. Review of Systems Review of Systems: As per HPI Physical Exam Physical Exam: Constitutional: ill appearing, no acute distress HEENT: normocephalic, no conjunctival injection CV: mottling noted of hands and feet Respiratory: no increased work of breathing Neuro: awakens to voice, non conversant Results & Data Results & Data Vital Signs (Past 12 Hours) Vital Signs Pulse Resp Pulse Ox O2 Del Method O2 Flow Rate 02/25/24 08:58 91 H 20 77 L Nasal Cannula 5 02/25/24 08:09 Nasal Cannula 4 Resident Activity Tracking Resident Involvement: Resident Care Provided Care Provided: Adult Hospital Medicine (1) Abdominal pain Abdominal location: unspecified location Qualified Code(s): R10.9 - Unspecified abdominal pain
[2024-02-25] MEDS ORDERED: HYDROmorphone INJ 0.5 MG/0.5 ML SYR IV PRN (09:24)
[2024-02-25] MEDS: MoRPHine SULFATE 10 MG/0.5 ML UDP PO PRN (16:14)
[2024-02-26] MEDS: HYDROmorphone INJ 0.5 MG/0.5 ML SYR IV PRN (02:14)
--- NOTE | 2024-02-26 09:25 | Death Pronouncement Note ---
Date of Service February 26, 2024 Pronouncement Note Admission Date Admission Date: February 21, 2024 Contributing Factors (1) Abdominal pain: (2) Elevated troponin: (3) Hypertensive emergency: (4) DVT prophylaxis: (5) Dysphagia: (6) Diarrhea: Summary Additional details: I was called to pronounce the of Julianne Solis (:[id number]) by nursing on 02/26/2024 at 07:43. Upon entering the room, the patient was found to be in a terminal state. Patient was unresponsive to verbal and tactile stimuli. Patient unresponsive to corneal and pupillary reflexes. On cardiopulmonary exam, no carotid or radial pulses found and pt without spontaneous heart tones or respirations. Time of was pronounced by me on 02/26/2024 at 07:55. Attending physician was notified. Next of kin (friend- Mirtha [phone]) was notified by Dr. Brewer. Additional Data Attending physician: Ezekiel Molina DO Resident Activity Tracking Resident Involvement: Resident Care Provided Care Provided: Adult Hospital Medicine
--- NOTE | 2024-02-26 09:30 | Discharge Summary ---
Date of Service February 26, 2024 Admission HPI Per Admitting Provider very pleasant 68-year-old female who has about a day and a half of abdominal pain. She notes that she started with diffuse crampy abdominal pain yesterday. It seems like it was fairly intense. She described feeling feverish having some degree of shaking chills, breaking out in sweats. She also had diarrhea 3 timesit seems like the pain went away and then she had the diarrhea, but the exact timeline is not entirely clear. She does not know if the diarrhea was bloody because she did not look. She has had a little bit more diarrhea today. No upper abdominal/epigastric pain, no nausea or vomiting. She felt feverish (again did not take her temperature) some chills and some sweats earlier today as well. she denies any urinary symptomsno dysuria hematuria frequency or urgency. She does not have any chest pain/chest pressure/shortness of breath. Review of systems otherwise negative except for as above Admission Exam Per Admitting Provider General she is awake and alert pleasant fatigued no distress. HEENT normocephalic atraumatic mucous membranes moist. Breathing unlabored no accessory muscle use good effort. Skin without rashes pallor or icterus. Abdomen is soft nondistended nontender no masses organomegaly no guarding rebound or rigidity. Musculoskeletal shows a diffuse fairly severe scoliosis, along with paraspinal tenderness. No true CVA tenderness. Extremities are without cyanosis clubbing or edema, skin is warm and dry. Labs and diagnostics notedmost notable are white count of 20, CT scan showing some dilated loops of bowel and diffuse atherosclerosis, troponin of 780, EKG with inverted T waves anteriorly that are new compared to previous. Principal Diagnosis acute respiratory failure, esophageal cancer, abdominal pain Discharge Exam Constitutional: terminal state ENT: pupil and corneal reflexes absent CV: no pulses, no spontaneous heart sounds Respiratory: no breath sounds Discharge Data Allergies Allergy/AdvReac Type Severity Reaction Status Date / Time No Known Allergies Allergy Unverified 03/15/22 13:30 Consultations 02/21/24 12:24 ED Decision to Admit Stat 02/21/24 15:49 Consult General Surgery Routine 02/23/24 20:04 Consult Pulmonology Routine 02/23/24 21:32 Consult Palliative Care Routine Ordered Studies 02/21/24 10:08 CT abd pelvis IV con only Stat IMPRESSION: 1. No bowel wall thickening or obstruction. 2. Mildly distended and fluid-filled stomach. 3. No hydronephrosis. 4. Normal appendix. 5. Mildly distended common bile duct and main pancreatic duct with mild intrahepatic bile duct dilatation. No obstructing lesions or stones identified. Recommend correlation with LFTs to exclude an occult obstructing process near the ampulla. Follow-up nonemergent ERCP should also be considered for further evaluation. 6. Distended bladder. 7. 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 8. Mild superior endplate compression deformities at L1 and L2. This is likely chronic. 9. Additional findings as described above. 02/23/24 17:25 CT angio chest PE protocol Stat IMPRESSION: 1. There is no evidence of pulmonary embolus in the main, lobar, or segmental pulmonary arteries. 2. Cardiomegaly and emphysema. 3. There is a 3.7 cm spiculated mass at the left apex. A bronchogenic neoplasm is the diagnosis of exclusion. Pulmonology evaluation is advised. 4. Right larger than left pleural effusions with dependent consolidation. This could represent atelectasis versus a pneumonitis. Correlate clinically. 5. The esophagus appears diffusely thick-walled, and is filled with fluid to the level of the thoracic inlet. Correlate clinically for evidence of esophagitis. Note that this places the patient at risk for aspiration, and there is fluid/debris within the lower lobe airways bilaterally. 6. Hiatal hernia. 7. Mildly enlarged left hilar and prevascular nodes are nonspecific. Metastatic alicia involvement is not excluded. 8. There are additional nodular opacities in the left upper lobe and in the right lower lobe. Attention at follow-up will be required. 9. Trace perihepatic ascites. 10. Additional findings as above. Hospital Course (1) Abdominal pain: 68 F presenting with diffuse abdominal pain found to have significant leukocytosis and elevated troponin on evaluation. Admitted for further diagnostic assessment and pain management. After discussion with palliative med (02/23), pt decided to proceed with comfort care while hospitalized with plan to discharge home with hospice. As pt's status continued to decline, she was unstable for discharge home. Pt comfortably while hospitalized. Her friend, Mirtha, was contacted. Hospital course prior to [facility] is detailed below. Abdominal pain with leukocytosis - Etiology remains unclear. WBC 20.96, plt-572, 2+ proteinuria, 2+ ketonuria, 3+ LE on admission. LFTs normal. 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 difficile, CRP ordered: C. difficile gene positive, toxin negative, CRP-32 - do not suspect active c diff infection Hypertensive emergency resolved - multiple SBP readings >210 over DBP readings >110 on admission - started on nicardipine drip to bring SBP <180; s/p IV labetalol 10 mg x 2 doses- was switched successfully to PO meds which had pt under adequate control - will d/c antihypertensives as transitioned to comfort care Elevated troponin resolved - 781.7 on admission. Repeat 624.6. Patient asymptomatic. - Most likely demand ischemia given evidence of severe intra-abdominal vascular disease - Lipid profile normal, [id number]-3.9% - discontinue atorvastatin 80 mg daily and aspirin 81 mg daily Dysphagia - discovered postadmission, as patient unable to tolerate PO administration - pt does have hx of esophageal cancer for which she has not received tx and does not wish to begin tx; CTA revealed a new left lung mass which may be indicative of (most likely) metastasis vs. new primary malignancy - speech/swallow eval recommended initiation clear liquid diet; may advance diet as pt wishes (2) Elevated troponin: (3) Hypertensive emergency: (4) DVT prophylaxis: (5) Dysphagia: (6) Diarrhea: Total Time Total Time Spent Total Time Spent (In Minutes): I did not see the patient today. I spent 10 minutes discussing the case with the resident physician and reviewing documentation. Discharge Plan Discharge Items Patient Disposition: Other Date/Time: 02/26/24 07:55 Supervising Physician Co-Signing Physician Notes I did not see the patient today as she prior to me coming into the hospital. I did review the clinical history and discussed the case with the resident physician. I agree with the impression and plan as outlined above. Resident Activity Tracking Resident Involvement: Resident Care Provided Care Provided: Adult [facility]
== END 2024-02-26 10:45 | disposition expired | DRG 391 ==
LOC: ED 09:59 → SUATTDRO 13:33 → 2N 13:33 → INTOOBSV 13:33 → 2N 14:46 → 2S 18:04 → 2E 21:04 → 3E 02-24 14:44